=== PATIENT | male | born 1955 | race Caucasian/White ===

== ENCOUNTER 2016-04-26 12:41 | Emergency (ER) | payer MEDICAID ==
[2016-04-26 13:05] VITALS: BP 179/114; PULSE 110; RESP 20; TEMP 98.8
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
[2016-04-26 13:58] VITALS: O2SAT 94
== END 2016-04-26 14:26 | disposition home or self-care (01) ==
LOC: EDUNIT#
DX: F10.120 Alcohol abuse with intoxication, uncomplicated (principal); Z79.82 Long term (current) use of aspirin

== ENCOUNTER 2017-09-11 09:42 | Emergency (ER) | payer MEDICAID ==
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
--- NOTE | 2017-09-11 11:19 | CPEKG ---
Heart Rate: 92 RR Interval: 652 P-R Interval: 168 QRSD Interval: 80 QT Interval: 380 QTC Interval: 471 P [place]: 41 QRS [place]: 44 T Wave [place]: 39 EKG Severity - NORMAL ECG - EKG Impression: SINUS RHYTHM Electronically Signed By: Patrizia Mckeon 11-Sep-2017 15:22:17
[2017-09-11 11:22] LABS: PLATELET COUNT 264 10^3/uL (150-400)
[2017-09-11 11:41] VITALS: BP 132/88
== END 2017-09-11 12:06 | disposition home or self-care (01) ==
LOC: EDUNIT#
PROC: 0HQ1XZZ Repair Face Skin, External Approach (ICD-10-PCS; principal; 2017-09-11)
DX: S01.112A Laceration without foreign body of left eyelid and periocular area, initial encounter (principal); F10.920 Alcohol use, unspecified with intoxication, uncomplicated; Z79.82 Long term (current) use of aspirin; X58.XXXA Exposure to other specified factors, initial encounter
CPT/HCPCS: 84484-PO; G0480

== ENCOUNTER 2017-09-22 09:45 | Observation (INO) | payer MEDICAID ==
[2017-09-22] MEDS ORDERED: chlorproMAZINE HCL 25 MG TAB PO ONE ×2 (10:06→12:07)
[2017-09-22] MEDS ORDERED: LORazepam 2 MG/ML INJ IVP ONE (10:09)
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
[2017-09-22 10:15] LABS: PLATELET COUNT 182 10^3/uL (150-400)
--- NOTE | 2017-09-22 10:32 | CPEKG ---
Heart Rate: 113 RR Interval: 531 P-R Interval: 156 QRSD Interval: 84 QT Interval: 356 QTC Interval: 489 P [place]: 53 QRS [place]: 46 T Wave [place]: 239 EKG Severity - ABNORMAL ECG - EKG Impression: SINUS TACHYCARDIA EKG Impression: PROBABLE LEFT ATRIAL ABNORMALITY EKG Impression: ABNORMAL T, CONSIDER ISCHEMIA, DIFFUSE LEADS EKG Impression: BORDERLINE PROLONGED QT INTERVAL Electronically Signed By: See Swift 22-Sep-2017 10:38:30
[2017-09-22] MEDS ORDERED: NS 1,000 ML IV ONE ×3 (11:35→14:58)
--- NOTE | 2017-09-22 14:39 | CPEKG ---
Heart Rate: 139 RR Interval: 432 P-R Interval: 120 QRSD Interval: 86 QT Interval: 308 QTC Interval: 469 P [place]: 51 QRS [place]: 45 T Wave [place]: 240 EKG Severity - ABNORMAL ECG - EKG Impression: SINUS TACHYCARDIA EKG Impression: PROBABLE LEFT ATRIAL ABNORMALITY EKG Impression: REPOL ABNRM SUGGESTS ISCHEMIA, LATERAL LEADS Electronically Signed By: See Swift 22-Sep-2017 14:46:55
[2017-09-22] MEDS ORDERED: ACETAMINOPHEN 325 MG TAB PO PRN (15:21)
[2017-09-22] MEDS ORDERED: PROMETHAZINE HCL 25 MG/ML INJ IVP PRN (15:21)
[2017-09-22] MEDS ORDERED: ONDANSETRON 4 MG/2 ML VIAL IVP PRN (15:21)
[2017-09-22] MEDS ORDERED: FLUMAZENIL 0.5 MG/5 ML MDV IVP PRN (15:22)
[2017-09-22] MEDS ORDERED: LORazepam 2 MG/ML INJ IVP PRN (15:22)
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
[2017-09-22] MEDS: THIAMINE HCL 500 MG in NS 100 ML IV SCH (16:36)
[2017-09-22] MEDS: ASPIRIN 81 MG CHEWABLE TAB PO SCH (19:35)
[2017-09-23 05:35] LABS: PLATELET COUNT 100 10^3/uL (150-400)
[2017-09-23] MEDS: THIAMINE HCL 500 MG in NS 100 ML IV SCH (08:13)
[2017-09-23] MEDS ORDERED: POTASSIUM CL 20 MEQ/15 ML UDCUP PO ONE (08:39)
[2017-09-23] MEDS ORDERED: THIAMINE HCL 500 MG in NS 100 ML IV SCH (09:00)
--- NOTE | 2017-09-23 09:54 | ASMTCMCOM ---
CM Note CM Note Notes: Patient admitted for intractable hiccups. PMH of AVR and EtOH abuse. I spoke with patient who is not interested in alcohol cessation. He says he's been to rehab, which didn't work, and quit drinking on his own. He says this hospitalization is a "wake up call." I offered support when/if he decides he wants it. He will likely discharge independently; he lives with a roommate. Date Signed: 09/23/2017 09:53 AM Electronically Signed By:Danni Farnsworth RN
[2017-09-23] MEDS ORDERED: NS W/ 20 KCl/L 1,000 ML IV SCH (11:00)
--- NOTE | 2017-09-23 12:40 | ECHO ---
[email or web address] [address] [address] Main: [phone] Fax: Transthoracic Echocardiogram Name: MARCUS FULLER MR#: [id number] Study Date: 09/23/2017 Study Time: 07:38 AM Date of : 1955 Age: 62 year(s) Height: 167.6 cm (66 in.) Weight: 70.31 kg (155 lb.) BSA: 1.79 m2 Gender: Male Examination: Echo Indication: h/o avr presents with tachycardia and flow murmur Image Quality: Adequate Contrast: Requested by: Silvestre Moyer BP: 110 mmHg/91 mmHg Heart Rate: Rhythm: Indication: h/o avr presents with tachycardia and flow murmur Procedure Staff Steelworker: Lillie Alvarez RDCS Reading Physician: Cristhian Arellano MD Requesting Provider: Conclusions: No pericardial effusion. Asymmetric septal hypertrophy with ejection fraction of 65-70%. LVOT gradient of 27-42 mm of mercury mild mitral regurgitation. Aortic valve replacement with mean gradient of 23 mm of mercury. Measurements: Chambers Valvular Assessment AV/MV Valvular Assessment TV/PV Normal Normal Normal Name Value Range Name Value Range Name Value Range Ao Taya (2D): 2.7 cm (1.4 cm-2.6 AV Vmax: 2.90 m/s (1 m/s-1.7 PV Vmax: 0.95 m/s (0.6 m/s-0.9 cm) m/s) m/s) IVSd (2D): 2.0 cm (0.6 cm-1.1 AV maxP mmHg ( - ) PV PGmax: 4 mmHg ( - ) cm) AV meanP mmHg ( - ) LVDd (2D): 3.4 cm (4.2 cm-5.9 HOA (VTI): 0.8 cm ( - ) cm) MV E Vmax: 0.69 m/s ( - ) LVDs (2D): 2.5 cm (2.1 cm-4 MV A Vmax: 1.06 m/s ( - ) cm) MV E/A: 0.65 ( - ) LVPWd (2D): 1.3 cm (0.6 cm-1 cm) MV meanP mmHg ( - ) LVOTd 1.5 cm 1.5 cm mm MV PHT: 0.054 s ( - ) LVEF (BP): 67 % (>=55 %) MVA (Vmax): 1.9 m/s ( - ) EF Range: 65-70 % MVA (PHT): 4.1 s ( - ) Continued Measurements: Chambers Valvular Assessment AV/MV Valvular Assessment TV/PV Name Value Name Value Name Value LADs: 3.1 cm MV DecTime: 158 m/s CVP (est.): 5 mmHg LADs Lon.2 cm MV E' Septal: 0.05 m/s LA Area: 15.3 cm2 MV E/E' Septal: 12.80 Patient: MARCUS FULLER Study Date: 09/23/2017 Page 1 of 2 07:38 AM LA Volume: 39 ml MV E/E' Lateral: 13.80 LA Volume Index: 21.8 ml/m2 MV VTI: 21.00 cm RA Area: 12.2 cm2 Additional Vessels Name Value Inferior Vena Cava: 1.4 cm Findings: Left Ventricle: Normal size left ventricle. Asymmetrical septal LV hypertrophy. Normal global systolic LV function. The ejection fraction is estimated to be 65-70 %. No regional wall motion abnormality. Diastolic dysfunction is present. . There is an elevation of the LVOT gradient with a peak gradient of 27 mmhg and a peak velocity of 2.6 m/s. After an irregular heartbeat a peak velocity of 3.2 m/s with a peak gradient of 42 mmhg was obtained. Right Ventricle: Normal size right ventricle. Normal RV function. Left Atrium: The left atrium is normal in size. Right Atrium: The right atrium is normal in size. Mitral Valve: The mitral valve is normal in appearance and function. Mild mitral valve leaflet calcification is present. Mild mitral valve regurgitation is present. No mitral stenosis is present. Aortic Valve: There is an aortic valve resplacement. The aortic valve replacement demonstrates trace to mild aortic regurgitation. The mean gradient is 23 mmhg. Tricuspid Valve: The tricuspid valve is normal in appearance and function. There is no significant tricuspid valve regurgitation. The pulmonary artery pressure is normal. Pulmonic Valve: The pulmonic valve is normal in appearance and function. There is no pulmonic regurgitation seen. Aorta: The aorta is normal. Normal size aortic root measuring 2.7 cm. IVC: The IVC is normal sized. Pericardium: No pericardial effusion. There is pericardial fat. No pleural effusion. (No Signature Object) Patient: MARCUS FULLER Study Date: 09/23/2017 Page 2 of 2 07:38 AM [id number]
[2017-09-23] MEDS ORDERED: IOPAMIDOL (ISOVUE 370) 100 ML BTL IV ONE (13:15)
[2017-09-23 16:27] VITALS: BP 155/110
[2017-09-23] MEDS: ASPIRIN 81 MG CHEWABLE TAB PO SCH (17:15)
--- NOTE | 2017-09-23 20:13 | PDDCSUM ---
Discharge Summary Discharge Summary: This is a 62 yo male who initially presented to the ER with hiccups. He was given Thorazine with resolution of his hiccups. He was also found to have hypotension and tachycardia. He had an elevated WBC count. He had an elevated D- Dimer. He responded well to IVF and was admitted to the SDU. He did well overnight and was able to maintain an adequate BP on the day of discharge. He continues to have mild sinus tachycardia and given his elevated D-dimer a CTA was obtained which was negative for P.E. He had no e/o of fever or other pathology He has a hx of Aortic valve replacement several years ago. He reports that it was done here. He does not remember who his surgeon is. CTA showed aneurysm of the ascending aorta measuring 5 cm. There was also the possibility of 2 pseudo aneurysm. Please see the official CTA chest report. TTE was c/w an elevated aortic valve peak gradient. I reviewed the imaging with our cardiothoracic surgeon, Dr. Escobedo. Upon review it was felt that the patient needed f/u with them. An official consultation was offered to the patient but he refused. Dr. Escobedo did meet shortly and the pt has agreed to f/u with him next week. He is hemodynamically stable on discharge. Tachycardia also is resolved. 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 ESCOBEDO PER ABOVE TOTAL TIME SPENT ON D/C IS 35 MINS
[2017-09-25] MEDS ORDERED: THIAMINE HCL 100 MG TAB PO SCH ×2 (09:00→15:22)
== END 2017-09-23 17:20 | disposition home or self-care (01) ==
LOC: INTOOBSV 14:45 → F2N 15:57
PROVIDERS: ADMIT Family Medicine; ATTEND Family Medicine
DX: R06.6 Hiccough (principal); R00.0 Tachycardia, unspecified; I95.9 Hypotension, unspecified; Z95.1 Presence of aortocoronary bypass graft; F10.10 Alcohol abuse, uncomplicated
CPT/HCPCS: 71046; 71275; 93005; 93306; 96361; 96374; 99291; G0378; 84484-PO; G0480; J2060; J3411; Q9967

== ENCOUNTER 2018-02-11 14:38 | Emergency (ER) | payer MEDICAID ==
--- NOTE | 2018-02-11 15:19 | EDPHY ---
H & P Stated Complaint: Bruising to bilateral arms x 2 weeks Time Seen by Provider: 02/11/18 15:17 HPI/ROS: HPI CHIEF COMPLAINT: Bruising bilateral arms. HISTORY OF PRESENT ILLNESS: This is a very pleasant 62-year-old male, alcohol, drinks alcohol daily. He works construction. Presents emergency room stating is concerned about bruising on his bilateral arms. He states he has never had this before. He does work construction but does not remember injuring her hitting his arms. He has no significant pain but on the dorsum aspect of both of his arms he has ecchymosis. Purple discoloration. No blisters. No cellulitis. No purpura. He has not been sick recently. He does drink a rather large amount of alcohol daily. Past Medical History: Alcoholism. Past Surgical History: Aortic valve replacement. Wrist surgery. Social History: Daily alcohol use. Homeless. Works construction. Family History: Noncontributory ROS REVIEW OF SYSTEMS: 10 Systems were reviewed and negative with the exception of the elements mentioned in the history of present illness. Exam Constitutional triage nursing summary reviewed, vital signs reviewed, awake/ alert. Eyes normal conjunctivae and sclera, EOMI, PERRLA. HENT normal inspection, atraumatic, moist mucus membranes, no epistaxis, neck supple/ no meningismus, no raccoon eyes. Respiratory clear to auscultation bilaterally, normal breath sounds, no respiratory distress, no wheezing. Cardiovascular rate normal, regular rhythm, no murmur, no edema, distal pulses normal. Gastrointestinal soft, non-tender, no rebound, no guarding, normal bowel sounds, no distension, no pulsatile mass. Genitourinary no CVA tenderness. Musculoskeletal no midline vertebral tenderness, full range of motion, no calf swelling, no tenderness of extremities, no meningismus, good pulses, neurovascularly intact. Skin bilateral dorsum of both arms ecchymosis purple discoloration. Neurologic awake, alert and oriented x 3, AAOx3, moves all 4 extremities equally, motor intact, sensory intact, CN II-XII intact, normal cerebellar, normal vision, normal speech. Psychiatric normal mood/affect. Heme/Lymph/Immune no lymphadenopathy. Differential Diagnosis: Includes but is not limited to in a particular order ecchymosis due to hitting his arms, chronic alcohol use causing thinning of his blood, platelet abnormality, leukemia Medical Decision Making: Plan for this patient check basic blood work. Re- evaluate. Re-evaluation: Serum alcohol level 418. Time of this 1917: Patient has been monitored here for multiple hours. His initial alcohol level over 5 hr ago was 418. However that time he was rather sober with clear speech. Normal gait. He sobered here for multiple hours. He is stable gait at this time. Answers questions appropriately. Is safe for discharge. The patient will go to the [facility]. Source: Patient - Personal History Current Tetanus Diphtheria and Acellular Pertussis (TDAP): Yes - Medical/Surgical History Hx Asthma: No Hx Chronic Respiratory Disease: No Hx Diabetes: No Hx Cardiac Disease: Yes Hx Renal Disease: No Hx Cirrhosis: No Hx Alcoholism: Yes Hx HIV/AIDS: No Hx Splenectomy or Spleen Trauma: No Other PMH: LT wrist surgery in December 2013. aortic valve replacement 2014; ETOH with falls - Social History Smoking Status: Never smoked Constitutional: Initial Vital Signs Temperature (C) 36.7 C 02/11/18 14:41 Heart Rate 101 H 02/11/18 14:41 Respiratory Rate 02/11/18 14:41 Blood Pressure 140/90 H 02/11/18 14:41 O2 Sat (%) 93 02/11/18 14:41 O2 Delivery Mode Room Air Allergies/Adverse Reactions: No Known Allergies Allergy (Verified 09/22/17 15:15) Home Medications: Medication Instructions Recorded Aspirin [Aspirin 81mg (*)] 81 mg PO DAILY@18 09/22/17 Medical Decision Making - Data Points Laboratory Results: Laboratory Results 02/11/18 15:27 02/11/18 15:27 02/11/18 02/11/18 15:27 15:27 WBC 5.01 10^3/uL 10^3/uL (3.80-9.50) RBC 3.82 10^6/uL L 10^6/uL (4.40-6.38) Hgb 13.3 g/dL L g/dL (13.7-17.5) Hct 37.0 % L % (40.0-51.0) MCV 96.9 fL fL (81.5-99.8) MCH 34.8 pg H pg (27.9-34.1) MCHC 35.9 g/dL g/dL (32.4-36.7) RDW 13.2 % % (11.5-15.2) Plt Count 126 10^3/uL L 10^3/uL (150-400) MPV 8.9 fL fL (8.7-11.7) Neut % (Auto) 56.3 % % (39.3-74.2) Lymph % (Auto) 29.9 % % (15.0-45.0) [place] % (Auto) 12.2 % % (4.5-13.0) Eos % (Auto) 0.4 % L % (0.6-7.6) Baso % (Auto) 0.8 % % (0.3-1.7) Nucleat RBC Rel Count 0.0 % % (0.0-0.2) Absolute Neuts (auto) 2.82 10^3/uL 10^3/uL (1.70-6.50) Absolute Lymphs (auto) 1.50 10^3/uL 10^3/uL (1.00-3.00) Absolute Monos (auto) 0.61 10^3/uL 10^3/uL (0.30-0.80) Absolute Eos (auto) 0.02 10^3/uL L 10^3/uL (0.03-0.40) Absolute Basos (auto) 0.04 10^3/uL 10^3/uL (0.02-0.10) Absolute Nucleated RBC 0.00 10^3/uL 10^3/uL (0-0.01) Immature Gran % 0.4 % % (0.0-1.1) Immature Gran # 0.02 10^3/uL 10^3/uL (0.00-0.10) Sodium 142 mEq/L mEq/L (135-145) Potassium 3.6 mEq/L mEq/L (3.3-5.0) Chloride 102 mEq/L mEq/L (97-110) Carbon Dioxide 24 mEq/l mEq/l (22-31) Anion Gap 16 mEq/L H mEq/L (6-14) BUN 11 mg/dL mg/dL (7-23) Creatinine 1.0 mg/dL mg/dL (0.7-1.3) Estimated GFR > 60 Glucose 102 mg/dL H mg/dL (70-100) Calcium 9.0 mg/dL mg/dL (8.5-10.4) Total Bilirubin 1.2 mg/dL mg/dL (0.1-1.4) AST 363 IU/L H IU/L (17-59) ALT 129 IU/L H IU/L (21-72) Alkaline Phosphatase 156 IU/L H IU/L (38-126) Total Protein 7.1 g/dL g/dL (6.3-8.2) Albumin 4.4 g/dL g/dL (3.5-5.0) Ethyl Alcohol 418 mg/dL H* mg/dL (0-10) Departure - Departure Disposition: Home, Routine, Self-Care Clinical Impression: Bruising, Alcoholism, Thrombocytopenia Alcohol intoxication Qualifiers: Complication of substance-induced condition: uncomplicated Qualified Code(s): F10.920 - Alcohol use, unspecified with intoxication, uncomplicated Condition: Good Instructions: Chlordiazepoxide/Clidinium (By mouth), Alcohol Intoxication (ED) , Thrombocytopenia (ED), Ecchymosis (ED) Additional Instructions: 1. Stop drinking alcohol. Referrals: NONE *PRIMARY CARE P,. [Primary Care Provider] - As per Instructions
[2018-02-11 15:38] LABS: PLATELET COUNT 126 10^3/uL (150-400)
[2018-02-11] MEDS ORDERED: CHLORDIAZEPOXIDE 25MG PREPK#6 BTL TAKEHOME ONE (19:16)
[2018-02-11 19:26] VITALS: BP 128/79
== END 2018-02-11 19:32 | disposition home or self-care (01) ==
DX: F10.920 Alcohol use, unspecified with intoxication, uncomplicated (principal); S40.021A Contusion of right upper arm, initial encounter; S40.022A Contusion of left upper arm, initial encounter; D69.6 Thrombocytopenia, unspecified
CPT/HCPCS: G0480

== ENCOUNTER 2018-02-24 11:19 | Inpatient (IN) | payer MEDICAID ==
[2018-02-24] MEDS ORDERED: NS 1,000 ML IV ONE ×2 (11:48→13:06)
[2018-02-24] MEDS ORDERED: ONDANSETRON 4 MG/2 ML VIAL IVP ONE (11:48)
[2018-02-24] MEDS ORDERED: LORazepam 2 MG/ML INJ IVP ONE ×3 (11:57→15:17)
--- NOTE | 2018-02-24 12:01 | EDPHY ---
HPI/HX/ROS/PE/MDM Narrative: CLINICAL IMPRESSION: Wernike encephalopathy, alcohol withdrawal ASSESSMENT/PLAN: 62-year-old alcoholic male presents to the emergency department by taxi after being [facility] for [facility] withdrawal. Patient reports he has been without alcohol for at least 3 days. Patient is very tremulous on arrival but denies headache, anxiety, paresthesias, abdominal pain, chest pain and shortness of breath, auditory and visual hallucinations. Initial see while score of 8 based on significant tremors. Patient received 2 mg Ativan, IV fluids, and labs. On re-evaluation, patient continued to be significantly tremulous, attempted road testing was unsuccessful with ataxia and significant tremor. Patient is giving conflicting reports about the time of day, finding his vehicle at an unknown bar, and intermittently confused on how he got here. I suspect the patient likely has Wernike encephalopathy from alcohol withdrawal. Thiamine and folate were ordered, discussed with hospitalist Dr. Mcmahan who agrees to admission. Patient was stabilized in the ED prior to transfer to the floor. Discussed with Dr. Lynch who also saw and examined the patient DIFFERENTIAL DX: Differential diagnosis includes but not limited to alcohol withdrawl, DT's, electrolyte imbalance, Co ingestion, toxidrome, metabolic disturbance, wernike encephalopathy, infection ED PROCEDURES: See lab results below ED COURSE: On reassessments, patient remains quite tremulous, unable to walk with steady gait, ataxic, seemingly confused over where his car is although originally reported to me it was his roommate scar. Denies headache, has had no nausea or vomiting. No reported anxiety. However given his neurologic dysfunction and ataxia I am concerned about warning he has encephalopathy. Patient was seen and examined by Dr. Lynch. It was felt he would benefit from admission. Thiamin and fully ordered. Discussed with hospitalist Dr. Mcmahan who accepts admission. CHIEF COMPLAINT: Can't stand up HPI: This is a 62-year-old alcoholic male who presents to the emergency department by taxi from the [facility] with complaints that he is having difficulty standing. Patient reports he has been at the [facility] for the last 3 days , was discharged this morning, was attempting to walk to a bus stop and states "the wind made it hard for my legs to work and I had to crawl back to the arc". A taxi was called for the patient and he was sent to the ER. Patient admits to fairly regular drinking but reports his last drink was 3 days ago. He denies auditory and visual hallucinations, denies hospitalization for previous alcohol withdrawal, and denies alcohol withdrawal seizures. He is very tremulous but states"I am always tremulous". He denies of any illicit drug abuse. He has no physical complaints including chest pain, shortness of breath , abdominal pain, nausea, vomiting and headache. Patient denies anxiety and paresthesias of the arms or legs. PMH: Chronic alcoholism Pertinent Past Surgical History: Previous orthopedic surgery and aortic valve replacement in 2014 Family History: Noncontributory Social History: Drinks regularly, lives with a roommate in [facility], works in construction REVIEW OF SYSTEMS: All other systems negative Constitutional: No fever, no chills, appetite change. Eyes: No discharge, vision change ENT: No sore throat, congestion, ear pain. Cardiovascular: No chest pain, no palpitations. Respiratory: No cough, no shortness of breath. Gastrointestinal: No abdominal pain, no vomiting, diarrhea. Genitourinary: No hematuria, dysuria, flank pain, pelvic pain Musculoskeletal: No back pain, joint swelling, joint pain, myalgias. Skin: No rashes, color change. Neurological: No headache, dizziness, +weakness. PHYSICAL EXAM: General Appearance: Alert, oriented x 2 unable to recollect the year, tremulous , stating that it is "so late in the day" when he looks at the clock and unaware that it is 11am vs 11pm. Otherwise answering all questions. Tachycardic, hypertensive. Smells of etoh HEENT: TMs are clear bilaterally no perforation or FB, no injection, no evidence of serous or mucopurulent otitis. Oropharynx clear is no erythema or exudates, no tonsillar hypertrophy or asymmetry. + tongue fasiculations. Dentition without abnormality. Eyes: PERRLA, no acute vision change, nystagmus, swelling, discharge, pain or photosensitivity. Conjunctiva pink, no pallor or injection Neck: Supple, nontender, no lymphadenopathy, no midline pain, FROM, no meningismus. Respiratory: There are no retractions, lungs are clear to auscultation. Cardiac: tachycardic, regular rhythm, no murmurs or gallops. Gastrointestinal: Abdomen is soft, nontender, bowel sounds normal, no masses/ hernia, no rigidity, guarding or focal peritoneal findings. Neurological: Alert and oriented x 3, CN 2-12 grossly intact, gait not initially tested but patient has FROM of bilateral LE although tremulous with cerebellar testing, strength 5/5, no clonus, DTR's intact, normal sensation and strength, no subjective paresthesias Skin: Warm, dry, no rashes, no nodules on palpation. Musculoskeletal: Extremities are symmetrical, full range of motion, no tenderness, deformity, swelling, or erythema, essential tremor noted to all extremities. Psychiatric: Patient is oriented X 3, there is no agitation, no auditory or visual hallucinations, no SI/HI. MEDICAL DECISION MAKING: Patient was seen with ED attending. Secondary supervising physician at time of evaluation was Dr. Lynch. Diagnosis: Wernike encephalopathy, alcohol withdrawal . New, requires workup Summary: See Assessment and Plan for summary of ED visit Clinical lab tests: ordered / reviewed. Independent visualization of images, tracing, or specimens: Yes. Discussed patient with another provider: Dr Lynch, Dr. Mcmahan Patient Progress: stable. - Data Points Laboratory Results: Laboratory Results 02/24/18 12:00 02/24/18 12:00 02/24/18 02/24/18 02/24/18 12:00 12:00 12:00 WBC 7.94 10^3/uL 10^3/uL (3.80-9.50) RBC 3.86 10^6/uL L 10^6/uL (4.40-6.38) Hgb 13.3 g/dL L g/dL (13.7-17.5) Hct 37.4 % L % (40.0-51.0) MCV 96.9 fL fL (81.5-99.8) MCH 34.5 pg H pg (27.9-34.1) MCHC 35.6 g/dL g/dL (32.4-36.7) RDW 14.0 % % (11.5-15.2) Plt Count 107 10^3/uL L 10^3/uL (150-400) MPV 9.1 fL fL (8.7-11.7) Neut % (Auto) 89.8 % H % (39.3-74.2) Lymph % (Auto) 3.5 % L % (15.0-45.0) [place] % (Auto) 5.5 % % (4.5-13.0) Eos % (Auto) 0.0 % L % (0.6-7.6) Baso % (Auto) 0.4 % % (0.3-1.7) Nucleat RBC Rel Count 0.0 % % (0.0-0.2) Absolute Neuts (auto) 7.13 10^3/uL H 10^3/uL (1.70-6.50) Absolute Lymphs (auto) 0.28 10^3/uL L 10^3/uL (1.00-3.00) Absolute Monos (auto) 0.44 10^3/uL 10^3/uL (0.30-0.80) Absolute Eos (auto) 0.00 10^3/uL L 10^3/uL (0.03-0.40) Absolute Basos (auto) 0.03 10^3/uL 10^3/uL (0.02-0.10) Absolute Nucleated RBC 0.00 10^3/uL 10^3/uL (0-0.01) Immature Gran % 0.8 % % (0.0-1.1) Immature Gran # 0.06 10^3/uL 10^3/uL (0.00-0.10) RBC/WBC/PLT Morphology TNP Platelet Estimate TNP Sodium 138 mEq/L mEq/L (135-145) Potassium 3.1 mEq/L L mEq/L (3.3-5.0) Chloride 95 mEq/L L mEq/L (97-110) Carbon Dioxide 26 mEq/l mEq/l (22-31) Anion Gap 17 mEq/L H mEq/L (6-14) BUN 6 mg/dL L mg/dL (7-23) Creatinine 0.9 mg/dL mg/dL (0.7-1.3) Estimated GFR > 60 Glucose 136 mg/dL H mg/dL (70-100) Calcium 9.0 mg/dL mg/dL (8.5-10.4) Total Bilirubin 2.0 mg/dL H mg/dL (0.1-1.4) Conjugated Bilirubin 0.7 mg/dL H mg/dL (0.0-0.5) Unconjugated Bilirubin 1.3 mg/dL H mg/dL (0.0-1.1) AST 199 IU/L H IU/L (17-59) ALT 73 IU/L H IU/L (21-72) Alkaline Phosphatase 110 IU/L IU/L (38-126) Total Protein 7.1 g/dL g/dL (6.3-8.2) Albumin 4.2 g/dL g/dL (3.5-5.0) Lipase 85 IU/L IU/L (23-300) Ethyl Alcohol Pending < 10 mg/dL mg/dL (0-10) Medications Given: Discontinued Medications Folic Acid (Folic Acid) 1 mg PO EDNOW ONE Stop: 02/24/18 15:11 Last Admin: 02/24/18 15:31 Dose: 1 mg Sodium Chloride (Ns) 1,000 mls @ 0 mls/hr IV EDNOW ONE; Wide Open PRN Reason: Protocol Stop: 02/24/18 11:49 Last Admin: 02/24/18 12:23 Dose: 1,000 mls Sodium Chloride (Ns) 1,000 mls @ 0 mls/hr IV EDNOW ONE; Wide Open PRN Reason: Protocol Stop: 02/24/18 13:07 Last Admin: 02/24/18 13:48 Dose: 1,000 mls Lorazepam (Ativan Injection) 2 mg IVP EDNOW ONE Stop: 02/24/18 11:58 Last Admin: 02/24/18 12:26 Dose: 2 mg Lorazepam (Ativan Injection) 1 mg IVP EDNOW ONE Stop: 02/24/18 14:05 Last Admin: 02/24/18 14:12 Dose: 1 mg Lorazepam (Ativan Injection) 2 mg IVP EDNOW ONE Stop: 02/24/18 15:18 Last Admin: 02/24/18 15:32 Dose: 2 mg Ondansetron HCl (Zofran) 4 mg IVP EDNOW ONE Stop: 02/24/18 11:49 Last Admin: 02/24/18 12:26 Dose: 4 mg General Time Seen by Provider: 02/24/18 11:41 Initial Vital Signs: Initial Vital Signs Temperature (C) 36.7 C 02/24/18 11:20 Heart Rate 129 H 02/24/18 11:20 Respiratory Rate 18 02/24/18 11:20 Blood Pressure 144/104 H 02/24/18 11:20 O2 Sat (%) 94 02/24/18 11:20 O2 Delivery Mode Room Air O2 (L/minute) 2 Allergies/Adverse Reactions: No Known Allergies Allergy (Verified 09/22/17 15:15) Home Medications: Medication Instructions Recorded Aspirin [Aspirin 81mg (*)] 81 mg PO DAILY@18 09/22/17 Departure - Departure Clinical Impression: Wernicke encephalopathy, Ataxia Alcohol dependence with withdrawal Qualifiers: Complication of substance-induced condition: with unspecified complication Qualified Code(s): F10.239 - Alcohol dependence with withdrawal, unspecified
--- NOTE | 2018-02-24 12:26 | CPEKG ---
Test Reason : OPEN Blood Pressure : / mmHG Vent. Rate : 119 BPM Atrial Rate : 118 BPM P-R Int : 097 ms QRS Dur : 089 ms QT Int : 326 ms P-R-T Axes : 023 036 230 degrees QTc Int : 459 ms Sinus tachycardia Repol abnrm suggests ischemia, anterolateral Confirmed by Caleb Lynch ([id number]) on 02/24/2018 12:26:22 PM Referred By: Confirmed By:Caleb Lynch
[2018-02-24 12:33] LABS: PLATELET COUNT 107 10^3/uL (150-400)
[2018-02-24] MEDS ORDERED: FOLIC ACID 1 MG TAB PO ONE (15:10)
[2018-02-24] MEDS ORDERED: THIAMINE HCL 100 MG in NS 100 ML IV SCH (15:15)
[2018-02-24] MEDS ORDERED: FLUMAZENIL 0.5 MG/5 ML MDV IVP PRN (15:26)
[2018-02-24] MEDS ORDERED: ONDANSETRON DISINTEGRATING 4 MG TAB PO PRN (15:30)
[2018-02-24] MEDS ORDERED: ONDANSETRON 4 MG/2 ML VIAL IVP PRN (15:30)
[2018-02-24] MEDS ORDERED: ACETAMINOPHEN 325 MG TAB PO PRN (15:30)
[2018-02-24] MEDS ORDERED: THIAMINE HCL 100 MG in NS 100 ML IV ONE (16:00)
[2018-02-24] MEDS ORDERED: PROTOCOL POTASSIUM 1 DOSE MISC PRN (16:05)
[2018-02-24] MEDS ORDERED: PROTOCOL MAGNESIUM 1 DOSE IV PRN (16:05)
[2018-02-24] MEDS: LORazepam 2 MG/ML INJ IVP PRN ×5 (16:26→23:41)
--- NOTE | 2018-02-24 16:29 | PDGENHP ---
<Shayy Franklin - Last Filed: 02/24/18 17:05> History and Physical - Chief Complaint "My legs won't let me stand." - History of Present Illness 62 y/o male who has recently been in the hospital d/t alcohol detox and transferred to [facility] presents today reporting he is unable to stand. He was d/c'ed from [facility] today and attempted to walk to the bus stop but felt like his legs were too weak to continue walking. He did not fall but would brace himself on objects within reach. He felt as if the "wind was going to blow me over." He went back to [facility] where he took a taxi to here. This is my first encounter with the pt. He was seen in the ED. He was lying on his right-side and appeared intoxicated. Initially, he states his last drink was 5 days ago, but then reports it was Thursday because his van is still parked at the saloon where he drank last. He is unkempt appearing, odorous of alcohol and urine. His socks are saturated with urine, he was unable to use the urinal in time. A&Ox 2 (alert to place, person). He believed the year to be 1919. He denies vision changes, photophobia, dizziness, chest pains, SOB, dysuria, diarrhea, n/v, fever or chills. No abdominal pain or tenderness. He does present with tremors and generalized tremulous. He reported to ED this was normal for him but for me, he denies this. [employer] 2-12 intact. No numbness, tingling. Noticeable BLE weakness - motor strength BLE 3/5 with tremors. I did not witness his gait. Past Medical/Surgical History 1. Alcohol use disorder 2. CAD 3. Aortic Valve Replacement (he reports this took place 5 years ago) 4. Ascending aortic aneurysm (5 cm) with possible pseudoaneurysm 5. Wrist surgery 6. Thrombocytopenia Social 1. Lives in the basement of his friends house. 2. Drinks alcohol (1/2 a pint of vodka) daily 3. 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 Sometimes drinks a beer at lunch. 4. Denies illicit drug use, denies tobacco use Vital Signs 131/88 102 HR 18 Respirations 96% RA 36.7 c History Information - Allergies/Home Medication List Allergies/Adverse Reactions: No Known Allergies Allergy (Verified 09/22/17 15:15) Home Medications: Aspirin [Aspirin 81mg (*)] 81 mg PO DAILY@18 09/22/17 [Last Taken 09/21/17] I have personally reviewed and updated: family history, medical history, social history, surgical history Past Medical History: See HPI List - Surgical History Additional surgical history: See HPI List - Family History Additional family history: Both parents - alcoholism - Social History Smoking Status: Never smoked Alcohol Use: Heavy Drug Use: None Additional social history: See HPI List Review of Systems Review of Systems: ROS: 10pt was reviewed & negative except for what was stated in HPI & below Constitutional: Reports: weakness EENMT: Reports: no symptoms Cardiac: Reports: no symptoms Respiratory: Reports: no symptoms Gastrointestinal: Reports: no symptoms Genitourinary: Reports: no symptoms Muscolosketal: Reports: no symptoms Skin: Reports: no symptoms Neurological: Reports: tremors, weakness Hematologic/Lymphatic: Reports: no symptoms Immunologic/Allergy: Reports: no symptoms Physical Exam Physical Exam: Lab data and imaging reviewed. K: 3.1 Anion Gap: 17 Plt: 107 Hgb/Hct: 13.3/37.4 RBC: 3.86 Temp Pulse Resp BP Pulse Ox 36.7 C 110 H 20 135/85 H 94 02/24/18 11:20 02/24/18 15:31 02/24/18 15:31 02/24/18 15:31 02/24/18 15:31 Constitutional: unkempt, other (See HPI list) Eyes: EOMI, other (Bilateral pupil 5mm; no constriction with light) Ears, Nose, Mouth, Throat: moist mucous membranes, hearing normal, ears appear normal, no oral mucosal ulcers Cardiovascular: regular rate and rhythym, no murmur, rub, or gallop, tachycardia Peripheral Pulses: 2+: dorsalis-pedis (R) (Radial 2+), dorsalis-pedis (L) ( Radial 2+) Respiratory: no respiratory distress, no rales or rhonchi, clear to auscultation Gastrointestinal: normoactive bowel sounds, soft, non-tender abdomen, no palpable masses, other (Round abdomen) Genitourinary: no bladder fullness, no bladder tenderness Skin: warm, normal color, no rashes or abrasions, no fluctuance, no induration, No mottled Musculoskeletal: generalized weakness, other (Described in HPI) Neurologic: sensation intact bilaterally, weakness, CN II-XII Intact, other (A& Ox2) Psychiatric: encephalopathic (Metabolic), poor memory Lymph, Heme, Immunologic: no cervical LAD, no supraclavicular LAD Lab Data & Imaging Review 02/24/18 12:00 02/24/18 12:00 WBC 7.94 10^3/uL (3.80-9.50) 02/24/18 12:00 RBC 3.86 10^6/uL (4.40-6.38) L 02/24/18 12:00 Hgb 13.3 g/dL (13.7-17.5) L 02/24/18 12:00 Hct 37.4 % (40.0-51.0) L 02/24/18 12:00 MCV 96.9 fL (81.5-99.8) 02/24/18 12:00 MCH 34.5 pg (27.9-34.1) H 02/24/18 12:00 MCHC 35.6 g/dL (32.4-36.7) 02/24/18 12:00 RDW 14.0 % (11.5-15.2) 02/24/18 12:00 Plt Count 107 10^3/uL (150-400) L 02/24/18 12:00 MPV 9.1 fL (8.7-11.7) 02/24/18 12:00 Neut % (Auto) 89.8 % (39.3-74.2) H 02/24/18 12:00 Lymph % (Auto) 3.5 % (15.0-45.0) L 02/24/18 12:00 [place] % (Auto) 5.5 % (4.5-13.0) 02/24/18 12:00 Eos % (Auto) 0.0 % (0.6-7.6) L 02/24/18 12:00 Baso % (Auto) 0.4 % (0.3-1.7) 02/24/18 12:00 Nucleat RBC Rel Count 0.0 % (0.0-0.2) 02/24/18 12:00 Absolute Neuts (auto) 7.13 10^3/uL (1.70-6.50) H 02/24/18 12:00 Absolute Lymphs (auto) 0.28 10^3/uL (1.00-3.00) L 02/24/18 12:00 Absolute Monos (auto) 0.44 10^3/uL (0.30-0.80) 02/24/18 12:00 Absolute Eos (auto) 0.00 10^3/uL (0.03-0.40) L 02/24/18 12:00 Absolute Basos (auto) 0.03 10^3/uL (0.02-0.10) 02/24/18 12:00 Absolute Nucleated RBC 0.00 10^3/uL (0-0.01) 02/24/18 12:00 Immature Gran % 0.8 % (0.0-1.1) 02/24/18 12:00 Immature Gran # 0.06 10^3/uL (0.00-0.10) 02/24/18 12:00 RBC/WBC/PLT Morphology TNP 02/24/18 12:00 Platelet Estimate TNP 02/24/18 12:00 Sodium 138 mEq/L (135-145) 02/24/18 12:00 Potassium 3.1 mEq/L (3.3-5.0) L 02/24/18 12:00 Chloride 95 mEq/L (97-110) L 02/24/18 12:00 Carbon Dioxide 26 mEq/l (22-31) 02/24/18 12:00 Anion Gap 17 mEq/L (6-14) H 02/24/18 12:00 BUN 6 mg/dL (7-23) L 02/24/18 12:00 Creatinine 0.9 mg/dL (0.7-1.3) 02/24/18 12:00 Estimated GFR > 60 02/24/18 12:00 Glucose 136 mg/dL (70-100) H 02/24/18 12:00 Calcium 9.0 mg/dL (8.5-10.4) 02/24/18 12:00 Total Bilirubin 2.0 mg/dL (0.1-1.4) H 02/24/18 12:00 Conjugated Bilirubin 0.7 mg/dL (0.0-0.5) H 02/24/18 12:00 Unconjugated Bilirubin 1.3 mg/dL (0.0-1.1) H 02/24/18 12:00 AST 199 IU/L (17-59) H 02/24/18 12:00 ALT 73 IU/L (21-72) H 02/24/18 12:00 Alkaline Phosphatase 110 IU/L (38-126) 02/24/18 12:00 Total Protein 7.1 g/dL (6.3-8.2) 02/24/18 12:00 Albumin 4.2 g/dL (3.5-5.0) 02/24/18 12:00 Lipase 85 IU/L (23-300) 02/24/18 12:00 Ethyl Alcohol < 10 mg/dL (0-10) 02/24/18 12:00 Assessment & Plan Plan: 62 y/o male with alcohol abuse disorder presents with metabolic encephalopathy and ataxia. 1. Metabolic encephalopathy: presumably Wernicke. -CIWA scale -Thiamine/folic acid replacement -Drug screen pending -Potassium/Magnesium protocol initiated; K 3.1 -Magnesium level pending -Anion gap elevated (17); most likely lactic ketoacidosis secondary to etoh intake 2. Acute Ataxia/BLE weakness: considerations of alcoholic myopathy, Wernicke -PT/OT 3. Alcohol use disorder: educated pt on alcohol cessation -Case management to follow 4. Tachycardia -Repeat EKG 5. Chronic thrombocytopenia: most likely secondary to heavy alcohol use 6. Transaminitis -Continue to monitor -Repeat CMP tomorrow Diet: Regular VTE ppx: SCDs Code: Full Dispo: Admit to inpatient <Cindi Emmanuel - Last Filed: 02/24/18 19:25> History and Physical - History of Present Illness Review of Systems Review of Systems: Physical Exam Physical Exam: Temp Pulse Resp BP Pulse Ox 36.6 C 103 H 16 142/102 H 90 L 02/24/18 19:21 02/24/18 19:21 02/24/18 19:21 02/24/18 19:21 02/24/18 19:21 Lab Data & Imaging Review 02/24/18 12:00 02/24/18 12:00 WBC 7.94 10^3/uL (3.80-9.50) 02/24/18 12:00 RBC 3.86 10^6/uL (4.40-6.38) L 02/24/18 12:00 Hgb 13.3 g/dL (13.7-17.5) L 02/24/18 12:00 Hct 37.4 % (40.0-51.0) L 02/24/18 12:00 MCV 96.9 fL (81.5-99.8) 02/24/18 12:00 MCH 34.5 pg (27.9-34.1) H 02/24/18 12:00 MCHC 35.6 g/dL (32.4-36.7) 02/24/18 12:00 RDW 14.0 % (11.5-15.2) 02/24/18 12:00 Plt Count 107 10^3/uL (150-400) L 02/24/18 12:00 MPV 9.1 fL (8.7-11.7) 02/24/18 12:00 Neut % (Auto) 89.8 % (39.3-74.2) H 02/24/18 12:00 Lymph % (Auto) 3.5 % (15.0-45.0) L 02/24/18 12:00 [place] % (Auto) 5.5 % (4.5-13.0) 02/24/18 12:00 Eos % (Auto) 0.0 % (0.6-7.6) L 02/24/18 12:00 Baso % (Auto) 0.4 % (0.3-1.7) 02/24/18 12:00 Nucleat RBC Rel Count 0.0 % (0.0-0.2) 02/24/18 12:00 Absolute Neuts (auto) 7.13 10^3/uL (1.70-6.50) H 02/24/18 12:00 Absolute Lymphs (auto) 0.28 10^3/uL (1.00-3.00) L 02/24/18 12:00 Absolute Monos (auto) 0.44 10^3/uL (0.30-0.80) 02/24/18 12:00 Absolute Eos (auto) 0.00 10^3/uL (0.03-0.40) L 02/24/18 12:00 Absolute Basos (auto) 0.03 10^3/uL (0.02-0.10) 02/24/18 12:00 Absolute Nucleated RBC 0.00 10^3/uL (0-0.01) 02/24/18 12:00 Immature Gran % 0.8 % (0.0-1.1) 02/24/18 12:00 Immature Gran # 0.06 10^3/uL (0.00-0.10) 02/24/18 12:00 RBC/WBC/PLT Morphology TNP 02/24/18 12:00 Platelet Estimate TNP 02/24/18 12:00 Sodium 138 mEq/L (135-145) 02/24/18 12:00 Potassium 3.1 mEq/L (3.3-5.0) L 02/24/18 12:00 Chloride 95 mEq/L (97-110) L 02/24/18 12:00 Carbon Dioxide 26 mEq/l (22-31) 02/24/18 12:00 Anion Gap 17 mEq/L (6-14) H 02/24/18 12:00 BUN 6 mg/dL (7-23) L 02/24/18 12:00 Creatinine 0.9 mg/dL (0.7-1.3) 02/24/18 12:00 Estimated GFR > 60 02/24/18 12:00 Glucose 136 mg/dL (70-100) H 02/24/18 12:00 Calcium 9.0 mg/dL (8.5-10.4) 02/24/18 12:00 Magnesium 1.2 mg/dL (1.6-2.3) L 02/24/18 16:06 Total Bilirubin 2.0 mg/dL (0.1-1.4) H 02/24/18 12:00 Conjugated Bilirubin 0.7 mg/dL (0.0-0.5) H 02/24/18 12:00 Unconjugated Bilirubin 1.3 mg/dL (0.0-1.1) H 02/24/18 12:00 AST 199 IU/L (17-59) H 02/24/18 12:00 ALT 73 IU/L (21-72) H 02/24/18 12:00 Alkaline Phosphatase 110 IU/L (38-126) 02/24/18 12:00 Total Protein 7.1 g/dL (6.3-8.2) 02/24/18 12:00 Albumin 4.2 g/dL (3.5-5.0) 02/24/18 12:00 Lipase 85 IU/L (23-300) 02/24/18 12:00 Ethyl Alcohol < 10 mg/dL (0-10) 02/24/18 12:00 Assessment & Plan Assessment: Alcohol dependence with withdrawal (Acute) Ataxia (Acute) Wernicke encephalopathy (Acute) Plan: Patient seen and evaluated independently and care plan reviewed with DIAZ Franklin, agree with her assessment and plan as outlined above. Please see my separate note for further details.
--- NOTE | 2018-02-24 17:07 | HOSPPROG ---
Hospitalist Progress Note Assessment/Plan: Patient seen and evaluated independently and care plan reviewed with DIAZ Franklin, please see her H&P for further details. 62 yo M with PMH of aortic stenosis s/p AVR as well as ascending aortic aneurysm presenting with acute encephalopathy and gait instability in the setting of heavy etoh abuse # etoh use disorder, severe: patient with prior hospitalization for same, was at the [facility] prior to admission and reports not having a drink for 3 days # metabolic encephalopathy: suspect patient with Wernicke's encephalopathy due to chronic etoh abuse and patient significant memory issues as well as gait instability. Started on high dose thiamine, pt/ot ordered. BAL 0 and likely a component of etoh withdrawal as well as next # etoh withdrawal: patient reports being several days out from his last drink though this history is limited by his encephalopathy as above, will monitor on CIWA, currently mildly tremulous # alcoholic hepatitis: will add on PT but suspect this is mild given relatively minor elevation in bili, will trend # VHD: s/p bioprosthetic aortic valve replacement, no e/o decompensation currently # ascending aortic aneurysm: noted incidentally at his last hospitalization, followed up with Dr. Escobedo since then with plans for repair in November but unclear by records available if repair occurred, patient states he had a 'lung transplant' but when asked to clarify if he means valve surgery he says 'yes, valve' --will get chest xray to help clarify # hypokalemia: electrolyte protocol # thrombocytopenia: due to etoh abuse, will trend # IP status, will need > 48 hours for eval/mgmt of above Care plan reviewed with ER doctor as above, op records reviewed and summarized as above. Objective: Vital Signs Temp Pulse Resp BP Pulse Ox 37.1 C 104 H 28 H 152/106 H 91 L 02/24/18 16:13 02/24/18 16:13 02/24/18 16:13 02/24/18 16:13 02/24/18 16:13 02/23/18 02/24/18 02/25/18 05:59 05:59 05:59 Intake Total 1999 Balance 1999 ICD10 Worksheet Patient Problems: Problems Problem Status Onset Aortic stenosis Acute Hiccups Acute Tachycardia Acute Wernicke encephalopathy Acute Alcohol dependence with withdrawal Acute Ataxia Acute
--- NOTE | 2018-02-24 17:33 | CPEKG ---
Test Reason : OPEN Blood Pressure : / mmHG Vent. Rate : 106 BPM Atrial Rate : 107 BPM P-R Int : 160 ms QRS Dur : 083 ms QT Int : 342 ms P-R-T Axes : 040 027 191 degrees QTc Int : 455 ms Sinus tachycardia Probable left atrial enlargement Borderline repol abnormality, diffuse leads No significant change from February 24, 2018, 12;11 Confirmed by Porter Herzog ([id number]) on 02/24/2018 5:32:43 PM Referred By: Confirmed By:Porter Herzog
[2018-02-24 19:26] LABS: INR 1.09 (0.83-1.16); PROTIME(PATIENT) 14.3 SEC (12.0-15.0)
[2018-02-24] MEDS ORDERED: POTASSIUM CL 10 MEQ TAB PO ONE (20:34)
[2018-02-24] MEDS: THIAMINE HCL 500 MG in NS 100 ML IV SCH (22:49)
[2018-02-25] MEDS: LORazepam 2 MG/ML INJ IVP PRN ×7 (04:11→23:59)
[2018-02-25] MEDS: THIAMINE HCL 500 MG in NS 100 ML IV SCH ×3 (05:11→21:31)
[2018-02-25] MEDS ORDERED: POTASSIUM CL 10 MEQ TAB PO ONE ×2 (08:33→20:13)
[2018-02-25] MEDS: FOLIC ACID 1 MG TAB PO SCH (09:08)
[2018-02-25] MEDS: MULTIVITAMINS W-MINERALS 1 EACH TAB PO SCH (09:08)
[2018-02-25] MEDS ORDERED: MAGNESIUM SULF 2 GM/WATER 50 ML IV ONE (10:00)
--- NOTE | 2018-02-25 10:07 | PDMN ---
Medical Necessity Medical necessity: Pt meets IP criteria as of 04/26/2017 per and NIGHAT M-570 ( Liver Disease Complications); est los > 2 mn for ongoing tx and management of alcoholic hepatitis with metabolic encephalopathy, hypokalemia, anemia, and ETOH withdrawal; requiring serial labs, CIWA protocol, IVF, and therapies.
--- NOTE | 2018-02-25 15:10 | ASMTCMCOM ---
CM Note CM Note Notes: CM met with pt to discuss discharge needs. Pt reports he was discharged from [facility] and was previously living with friends. Pt reports he has a vehicle and gets food from the foodbank regularly. Pt reports he has not been to the [facility] before and has friends who he may be able to stay with at discharge. CM provided education on importance of supports. CM to follow. Plan: Home with friend vs [facility]. Date Signed: 02/25/2018 03:10 PM Electronically Signed By:ROSE MARY Kent
--- NOTE | 2018-02-25 15:37 | HOSPPROG ---
Hospitalist Progress Note Assessment/Plan: 62 yo M with PMH of aortic stenosis s/p AVR as well as ascending aortic aneurysm presenting with acute encephalopathy and gait instability in the setting of heavy etoh abuse # etoh use disorder, severe: -patient with prior hospitalization for same, -was at the [facility] prior to admission and reports not having a drink for 3 days # metabolic encephalopathy: -suspect patient with Wernicke's encephalopathy due to chronic etoh abuse -patient significant memory issues as well as gait instability. -high dose thiamine, -pt/ot # etoh withdrawal: -patient reports being several days out from his last drink -history is limited by his encephalopathy -CIWA, -tremulous # alcoholic hepatitis: -follow labs # VHD: -s/p bioprosthetic aortic valve replacement, -no e/o decompensation currently # ascending aortic aneurysm: - noted incidentally at his last hospitalization, -followed up with Dr. Escobedo -plans for repair in November # hypokalemia: -electrolyte protocol # thrombocytopenia: -due to etoh abuse, will trend # IP status, will need > 48 hours for eval/mgmt of above Subjective: Up in chair. No issues. Tremors. No pain. No specific complaints Objective: Vital Signs Temp Pulse Resp BP Pulse Ox 36.3 C 121 H 28 H 121/99 H 95 02/25/18 11:54 02/25/18 11:54 02/25/18 11:54 02/25/18 11:54 02/25/18 11:54 Laboratory Results 02/25/18 04:25 02/25/18 04:25 02/24/18 02/25/18 02/26/18 05:59 05:59 05:59 Intake Total 2650 Balance 2650 PT 14.3 SEC (12.0-15.0) 02/24/18 19:09 INR 1.09 (0.83-1.16) 02/24/18 19:09 - Physical Exam Constitutional: appears nourished, not in pain, chronically ill appearing Eyes: PERRL, anicteric sclera, EOMI Ears, Nose, Mouth, Throat: moist mucous membranes, hearing normal, ears appear normal Cardiovascular: tachycardia, No JVD, No edema Respiratory: no respiratory distress, no rales or rhonchi, reduced air movement Gastrointestinal: normoactive bowel sounds, No tenderness, No ascites Skin: warm, normal color, No mottled Musculoskeletal: no joint effusions, muscular tenderness, abnormal gait, generalized weakness Psychiatric: not anxious, poor insight, poor judgement, poor memory, No thought process linear ICD10 Worksheet Patient Problems: Problems Problem Status Onset Aortic stenosis Acute Hiccups Acute Tachycardia Acute Wernicke encephalopathy Acute Alcohol dependence with withdrawal Acute Ataxia Acute
--- NOTE | 2018-02-25 15:56 | ASMTCMCOM ---
CM Note CM Note Notes: CM provided education on ETOH. Pt reports he wants to stop drinking and says AA meetings are helpful. He says he attends about 2x/week. Pt reports in the past when he was court ordered to not drink was the only time he was sober in the past 16 years. Pt not interested in rehab at this time. CM to follow. Date Signed: 02/25/2018 03:55 PM Electronically Signed By:ROSE MARY Kent
[2018-02-26] MEDS: THIAMINE HCL 500 MG in NS 100 ML IV SCH ×3 (06:07→21:30)
[2018-02-26] MEDS: MULTIVITAMINS W-MINERALS 1 EACH TAB PO SCH (09:37)
[2018-02-26] MEDS: FOLIC ACID 1 MG TAB PO SCH (09:37)
[2018-02-26] MEDS ORDERED: POTASSIUM CL 10 MEQ TAB PO ONE ×3 (09:45→20:55)
[2018-02-26] MEDS ORDERED: MAGNESIUM SULF 1 GM/DEXTROSE 100 ML IV ONE (09:45)
--- NOTE | 2018-02-26 12:18 | HOSPPROG ---
Hospitalist Progress Note Assessment/Plan: 62 yo M with PMH of aortic stenosis s/p AVR as well as ascending aortic aneurysm presenting with acute encephalopathy and gait instability in the setting of heavy etoh abuse. First encounter, chart reviewed. # etoh use disorder, severe and withdrawal -patient with prior hospitalization for same, -was at the [facility] prior to admission and reports not having a drink for 3 days -CIWA -tachycardic and appears to be withdrawing when I evaluated (place on low dose beta gabriel) -placed on low dose gabapentin to help w concern fo seizures # metabolic encephalopathy: -suspect patient with Wernicke's encephalopathy due to chronic etoh abuse -patient significant memory issues as well as gait instability. -high dose thiamine, -pt/ot -he knows where he is and that he is falling #fever of 38.5 -will follow, only one -reviewed his chest x ray that shows no definitive pna # alcoholic hepatitis: -recheck labs in a.m. # VHD: -s/p bioprosthetic aortic valve replacement, -no e/o decompensation currently # ascending aortic aneurysm: - noted incidentally at his last hospitalization, -followed up with Dr. Escobedo -plans for repair in November # hypokalemia: -electrolyte protocol # thrombocytopenia: -due to etoh abuse, will trend #Plan: he wants to go home but doubtful he can walk safely. He clearly is withdrawing. He knows alcohol is a problem for him. CM involved. Subjective: Dontae said he is feeling fine and knows alcohol is a problem. Objective: Vital Signs Temp Pulse Resp BP Pulse Ox 36.6 C 90 16 135/94 H 94 02/26/18 08:00 02/26/18 08:00 02/26/18 04:00 02/26/18 08:00 02/26/18 08:00 Laboratory Results 02/25/18 04:25 02/26/18 04:23 02/25/18 02/26/18 02/27/18 05:59 05:59 05:59 Intake Total 2650 240 Output Total 300 Balance 2650 -60 PT 14.3 SEC (12.0-15.0) 02/24/18 19:09 INR 1.09 (0.83-1.16) 02/24/18 19:09 - Physical Exam Constitutional: appears nourished, chronically ill appearing Eyes: PERRL Ears, Nose, Mouth, Throat: hearing normal Cardiovascular: regular rate and rhythym, tachycardia Respiratory: no respiratory distress Skin: warm Musculoskeletal: generalized weakness Psychiatric: poor insight, poor judgement, No not encephalopathic (he knows his name and where he is but has trouble keeping a conversation) ICD10 Worksheet Patient Problems: Problems Problem Status Onset Alcohol dependence with withdrawal Acute Ataxia Acute Wernicke encephalopathy Acute Aortic stenosis Acute Hiccups Acute Tachycardia Acute
[2018-02-26] MEDS: LORazepam 2 MG/ML INJ IVP PRN (21:29)
[2018-02-26] MEDS: METOPROLOL TARTRATE 25 MG TAB PO SCH (21:31)
[2018-02-26] MEDS: GABAPENTIN 100 MG CAP PO SCH (21:31)
[2018-02-26] MEDS ORDERED: hydrALAZINE 25 MG TAB PO PRN (23:49)
[2018-02-27] MEDS: THIAMINE HCL 500 MG in NS 100 ML IV SCH ×3 (05:23→21:44)
[2018-02-27] MEDS: METOPROLOL TARTRATE 25 MG TAB PO SCH ×2 (08:46→20:04)
[2018-02-27] MEDS: GABAPENTIN 100 MG CAP PO SCH ×2 (08:48→20:04)
[2018-02-27] MEDS: MULTIVITAMINS W-MINERALS 1 EACH TAB PO SCH (08:48)
[2018-02-27] MEDS: FOLIC ACID 1 MG TAB PO SCH (08:48)
[2018-02-27] MEDS ORDERED: POTASSIUM CL 10 MEQ TAB PO ONE ×2 (10:50→19:25)
[2018-02-27] MEDS ORDERED: LORazepam 1 MG TAB PO PRN (10:51)
--- NOTE | 2018-02-27 15:25 | HOSPPROG ---
Hospitalist Progress Note Assessment/Plan: 62 yo M with PMH of aortic stenosis s/p AVR as well as ascending aortic aneurysm presenting with acute encephalopathy and gait instability in the setting of heavy etoh abuse. First encounter, chart reviewed. # etoh use disorder, severe and withdrawal -patient with prior hospitalization for same, -was at the [facility] prior to admission and reports not having a drink for 3 days -CIWA -actively withdrawing today, controlled w oral ativan, on beta gabriel in addition # metabolic encephalopathy: -suspect patient with Wernicke's encephalopathy due to chronic etoh abuse -patient significant memory issues as well as gait instability which are ongoing -high dose thiamine -pt/ot #fever of 38.5 -will follow, only one -reviewed his chest x ray that shows no definitive pna -blood cx shows no gowth # alcoholic hepatitis: -labs slightly worse today # VHD: -s/p bioprosthetic aortic valve replacement, -no e/o decompensation currently # ascending aortic aneurysm: - noted incidentally at his last hospitalization, -followed up with Dr. Escobedo -plans for repair in November # hypokalemia: -electrolyte protocol # thrombocytopenia: -due to etoh abuse, will trend #Plan: continue supportive treatment, he is unable to go home. Tremulous and has ongoing encephalopathy. Subjective: Dontae wants to get his truck and tools, worried he will lose them. Has no c/o pain. Objective: Vital Signs Temp Pulse Resp BP Pulse Ox 36.8 C 89 24 H 147/92 H 91 L 02/27/18 11:34 02/27/18 11:34 02/27/18 11:34 02/27/18 11:34 02/27/18 11:34 Laboratory Results 02/25/18 04:25 02/27/18 04:33 02/26/18 02/27/18 02/28/18 05:59 05:59 05:59 Intake Total 240 200 Output Total 300 Balance -60 200 PT 14.3 SEC (12.0-15.0) 02/24/18 19:09 INR 1.09 (0.83-1.16) 02/24/18 19:09 - Physical Exam Constitutional: unkempt Eyes: PERRL Ears, Nose, Mouth, Throat: hearing normal Cardiovascular: regular rate and rhythym Skin: warm Musculoskeletal: generalized weakness, other (slightly tremeulous) Psychiatric: encephalopathic (knows his name, but due to withdrawals is having a hard time following through, doesn't know his age, but knows his date) ICD10 Worksheet Patient Problems: Problems Problem Status Onset Alcohol dependence with withdrawal Acute Ataxia Acute Wernicke encephalopathy Acute Aortic stenosis Acute Hiccups Acute Tachycardia Acute
[2018-02-28] MEDS: THIAMINE HCL 500 MG in NS 100 ML IV SCH ×2 (05:51→13:20)
[2018-02-28] MEDS: GABAPENTIN 100 MG CAP PO SCH ×2 (08:17→20:16)
[2018-02-28] MEDS: METOPROLOL TARTRATE 25 MG TAB PO SCH ×2 (08:17→20:15)
[2018-02-28] MEDS: MULTIVITAMINS W-MINERALS 1 EACH TAB PO SCH (08:17)
[2018-02-28] MEDS: FOLIC ACID 1 MG TAB PO SCH (08:17)
[2018-02-28] MEDS ORDERED: POTASSIUM CL 10 MEQ TAB PO ONE ×2 (10:10→19:56)
--- NOTE | 2018-02-28 14:45 | HOSPPROG ---
Hospitalist Progress Note Assessment/Plan: 62 yo M with PMH of aortic stenosis s/p AVR as well as ascending aortic aneurysm presenting with acute encephalopathy and gait instability in the setting of heavy etoh abuse. # etoh use disorder, severe and withdrawal -patient with prior hospitalization for same, -was at the [facility] prior to admission and reports not having a drink for 3 days -CIWA -better today, not as tremulous # metabolic encephalopathy: -suspect patient with Wernicke's encephalopathy due to chronic etoh abuse -patient significant memory issues as well as gait instability which are ongoing -changed thiamine to po -was able to ambulate today on his own #fever of 38.5 -will follow, only one -reviewed his chest x ray that shows no definitive pna -blood cx shows no gowth # alcoholic hepatitis: -recheck labs in a.m. # VHD: -s/p bioprosthetic aortic valve replacement, -no e/o decompensation currently # ascending aortic aneurysm: - noted incidentally at his last hospitalization, -followed up with Dr. Escobedo -plans for repair in November # hypokalemia: -electrolyte protocol # thrombocytopenia: -due to etoh abuse, will trend #Plan: CM giving him resources, high risk for drinking again, He says he is motivated to quit. Recheck labs in a.m. asked CM to get him an appt [facility] so he has some type of follow up. Subjective: Dontae has no complaints, says he is feeling better daily. Objective: Vital Signs Temp Pulse Resp BP Pulse Ox 36.9 C 85 24 H 151/93 H 94 02/28/18 11:54 02/28/18 11:54 02/28/18 11:54 02/28/18 11:54 02/28/18 11:54 Laboratory Results 02/25/18 04:25 02/28/18 04:32 02/27/18 02/28/18 03/01/18 05:59 05:59 05:59 Intake Total 200 140 Output Total 140 Balance 200 0 PT 14.3 SEC (12.0-15.0) 02/24/18 19:09 INR 1.09 (0.83-1.16) 02/24/18 19:09 - Physical Exam Constitutional: appears nourished, not in pain, chronically ill appearing Eyes: PERRL, icteric sclera Ears, Nose, Mouth, Throat: hearing normal Respiratory: no respiratory distress Skin: warm Musculoskeletal: generalized weakness Psychiatric: interacting appropriately ICD10 Worksheet Patient Problems: Problems Problem Status Onset Alcohol dependence with withdrawal Acute Ataxia Acute Wernicke encephalopathy Acute Aortic stenosis Acute Hiccups Acute Tachycardia Acute
--- NOTE | 2018-02-28 16:27 | ASMTCMCOM ---
CM Note CM Note Notes: CM met with member, he states he will be able to discharge home with room mate who does not drink. Member states the living situation is stable right now though he is nervous about being able to pay rent in a few months. He does not think he will be able to work after this hospitalization and is considering applying for SSD. Member states he is not aware of [facility], CM [facility] and State ID#. Member states he does not have a PCP, CM will place [facility] referral to assist with connecting to Primary Care. Patient confirmed phone number is [phone]. Member given AA locations per request from hospitalistIsmael. Patient likely to discharge tomorrow. CM to follow. Discharge plan: independent, likely 03/01/18. Date Signed: 02/28/2018 04:27 PM Electronically Signed By:Ellie Loza
[2018-03-01 05:31] LABS: INR 0.97 (0.83-1.16); PROTIME(PATIENT) 13.1 SEC (12.0-15.0)
[2018-03-01] MEDS: MULTIVITAMINS W-MINERALS 1 EACH TAB PO SCH (08:33)
[2018-03-01] MEDS: FOLIC ACID 1 MG TAB PO SCH (08:34)
[2018-03-01] MEDS: GABAPENTIN 100 MG CAP PO SCH (08:34)
[2018-03-01] MEDS: METOPROLOL TARTRATE 25 MG TAB PO SCH (08:34)
[2018-03-01] MEDS ORDERED: THIAMINE HCL 100 MG TAB PO SCH (09:00)
[2018-03-01] MEDS ORDERED: POTASSIUM CL 10 MEQ TAB PO ONE (09:06)
[2018-03-01] MEDS ORDERED: MAGNESIUM SULF 1 GM/DEXTROSE 100 ML IV ONE (10:06)
--- NOTE | 2018-03-01 11:39 | HOSPPROG ---
Hospitalist Progress Note Assessment/Plan: 62 yo M with PMH of aortic stenosis s/p AVR as well as ascending aortic aneurysm presenting with acute encephalopathy and gait instability in the setting of heavy etoh abuse. # etoh use disorder, severe and withdrawal -patient with prior hospitalization for same, -was at the [facility] prior to admission and reports not having a drink for 3 days -resolved # metabolic encephalopathy: -suspect patient with Wernicke's encephalopathy due to chronic etoh abuse -patient significant memory issues as well as gait instability which are ongoing -changed thiamine to po -much improved #fever of 38.5 -will follow, only one -reviewed his chest x ray that shows no definitive pna -blood cx shows no gowth # alcoholic hepatitis: -recheck labs in a.m. # VHD: -s/p bioprosthetic aortic valve replacement, -no e/o decompensation currently # ascending aortic aneurysm: - noted incidentally at his last hospitalization, -followed up with Dr. Escobedo -plans for repair in November # hypokalemia: -electrolyte protocol # thrombocytopenia: -due to etoh abuse, will trend #Plan: dc home today,has a f/u app[facility] Subjective: Dontae said he is feeling much better today. Objective: Vital Signs Temp Pulse Resp BP Pulse Ox 36.8 C 86 16 158/100 H 94 03/01/18 07:46 03/01/18 07:46 03/01/18 07:46 03/01/18 07:46 03/01/18 07:46 Laboratory Results 02/25/18 04:25 03/01/18 04:35 02/28/18 03/01/18 03/02/18 05:59 05:59 05:59 Intake Total 140 350 Output Total 140 1 Balance 0 349 PT 13.1 SEC (12.0-15.0) 03/01/18 04:35 INR 0.97 (0.83-1.16) 03/01/18 04:35 - Physical Exam Constitutional: no apparent distress, appears nourished Eyes: PERRL Ears, Nose, Mouth, Throat: hearing normal Respiratory: no respiratory distress Gastrointestinal: normoactive bowel sounds Neurologic: AAOx3 Psychiatric: interacting appropriately ICD10 Worksheet Patient Problems: Problems Problem Status Onset Alcohol dependence with withdrawal Acute Ataxia Acute Wernicke encephalopathy Acute Aortic stenosis Acute Hiccups Acute Tachycardia Acute
[2018-03-01 11:43] VITALS: BP 134/100
--- NOTE | 2018-03-01 12:20 | ASMTCMCOM ---
CM Note CM Note Notes: CM spoke to Autumn Alcaraz NP. Pt is being discharged today. CM provided pt a bus pass. CM provided pt w/ clothes from the donation closet. CM made pt an appointment with the [facility] for this Thursday at 11:45AM. Appointment has been inputted into [employer]. CM notified pt of the appointment. No other needs at this time. CM available for changes. Plan: Independent Date Signed: 03/01/2018 12:19 PM Electronically Signed By:ROSE MARY Gutierrez
--- NOTE | 2018-03-01 13:48 | GDS ---
DISCHARGE DIAGNOSES: 1. Severe alcohol use disorder. 2. Metabolic encephalopathy. 3. Fever. 4. Alcoholic hepatitis. 5. Valvular heart disease. 6. Ascending aortic aneurysm. 7. Hypokalemia. HISTORY: Briefly, the patient is a 62-year-old male with a past medical history of aortic stenosis, status post aortic valve replacement, as well as an ascending aortic aneurysm, who presented with acu te encephalopathy and gait instability in the setting of heavy alcohol use. He went through withdraw als that were well managed during his hospital stay. Many discussions with the patient about the imp acts of the alcohol. He will be discharged home and further follow up with [facility]. An appo intment has been made for him. In addition, he is talking about moving to [facility] to li ve with his brother who may be able to give him more support than he is getting here. HOSPITAL COURSE: 1. Severe alcohol use disorder. He has been here a few times for the exact same issue. This has si nce resolved. 2. Metabolic encephalopathy. He was treated with high-dose IV thiamine with significant improvement . Concern that he has Wernicke's encephalopathy due to chronic alcohol use. 3. Fever. This was once. Reviewed his chest x-ray, that showed no pneumonia. Blood cultures showe d no growth. 4. Alcoholic hepatitis. His labs have improved. 5. VHD. He is status post bioprosthetic aortic valve replacement. No etiology of decompensation du ring his stay. 6. Ascending aortic aneurysm. He has an appointment to follow up with Dr. Escobedo this November for repair. 7. Hypokalemia, on the electrolyte protocol. 8. Thrombocytopenia. This is secondary to alcohol use. DISCHARGE CONDITION: Stable. Blood pressure is 134/100, heart rate of 89, respiratory rate of 18, O 2 saturation on room air 94%. Temperature is 36.5 Celsius. DISCHARGE MEDICATIONS: Please see the EMR. DISCHARGE INSTRUCTIONS: 1. To follow up with [facility] this Thursday at 11:45. 2. To take thiamine and folic acid daily. 3. Reviewed with him the stress of alcohol on his brain and causing Wernicke's encephalopathy. 4. Recommend he go to Alcoholics Anonymous. Case Management has given resources. /[id number]/MODL
== END 2018-03-01 12:30 | disposition home or self-care (01) | DRG 52 ==
LOC: OBSVTOIN 15:09 → F3E 16:05
PROVIDERS: ADMIT Internal Medicine; ATTEND Internal Medicine
DX: G93.41 Metabolic encephalopathy (principal); I38 Endocarditis, valve unspecified; K70.10 Alcoholic hepatitis without ascites; F10.239 Alcohol dependence with withdrawal, unspecified; E51.2 Wernicke's encephalopathy; E86.9 Volume depletion, unspecified; I71.4 Abdominal aortic aneurysm, without rupture; E87.6 Hypokalemia; Z95.4 Presence of other heart-valve replacement
CPT/HCPCS: 80305; 96374; 97110-GO; 97116-GP; 97162-GP; 97166-GO; 97530-GO; 97530-GP; 97535-GO; G0480; G8978-GP-CL; G8979-GP-CI; J2060; J2405; J3411; J3475

== ENCOUNTER 2018-03-12 10:36 | Inpatient (IN) | payer MEDICAID ==
[2018-03-12] MEDS ORDERED: NS 1,000 ML IV ONE (12:55)
[2018-03-12] MEDS ORDERED: THIAMINE HCL 500 MG in NS 100 ML IV ONE (12:56)
[2018-03-12] MEDS ORDERED: LORazepam 2 MG/ML INJ IVP ONE (12:56)
--- NOTE | 2018-03-12 13:00 | EDPHY ---
H & P Stated Complaint: Weakness Time Seen by Provider: 03/12/18 12:50 HPI/ROS: CHIEF COMPLAINT: Imbalance HISTORY OF PRESENT ILLNESS: The patient is a 62-year-old alcoholic man with history of 1 acute encephalopathy. He comes to the emergency department complaining of imbalance and difficulty ambulating. He was admitted with similar symptoms around of this year. He was discharged with thiamine. He states he has not been taking this. He does continue to drink. He is shaky and tachycardic. He also has a history of a aortic valve replacement 2014 and has plans to have AAA repair next year. He denies abdominal pain, chest pain or shortness of breath. No GI symptoms. No recent fevers or illness. No dizziness. His last drink was yesterday evening. Severity: Moderate Modifying factors: None REVIEW OF SYSTEMS: Constitutional: denies: chills, fever, recent illness, recent injury EENTM: denies: blurred vision, double vision, nose congestion Respiratory: denies: cough, shortness of breath Cardiac: denies: chest pain, irregular heart rate, lightheadedness, palpitations Gastrointestinal/Abdominal: denies: abdominal pain, diarrhea, nausea, vomiting, blood streaked stools Genitourinary: denies: dysuria, frequency, hematuria, pain Musculoskeletal: See HPI Skin: denies: lesions, rash, jaundice, bruising Neurological: See HPI denies: headache, numbness, paresthesia, tingling, dizziness, weakness Hematologic/Lymphatic: denies: blood clots, easy bleeding, easy bruising Immunologic/allergic: denies: HIV/AIDS, transplant 10 systems reviewed and negative except as noted EXAM: GENERAL: Well-appearing, well-nourished and in no acute distress. HEAD: Atraumatic, normocephalic. EYES: Pupils equal round and reactive to light, extraocular movements intact, sclera anicteric, conjunctiva are normal. ENT: TMs normal, nares patent, oropharynx clear without exudates. Moist mucous membranes. NECK: Normal range of motion, supple without lymphadenopathy or JVD. LUNGS: Breath sounds clear to auscultation bilaterally and equal. No wheezes rales or rhonchi. HEART: Regular rate and rhythm without murmurs, rubs or gallops. ABDOMEN: Soft, nontender, normoactive bowel sounds. No guarding, no rebound. No masses appreciated. BACK: No CVA tenderness, no spinal tenderness, step-offs or deformities EXTREMITIES: Normal range of motion, no pitting or edema. No clubbing or cyanosis. NEUROLOGICAL: Significant tremors, Cranial nerves II through XII grossly intact. Normal speech, unable to ambulate because of balance he states that his strength is good. 5/5 strength in each extremity when tested individually, normal movement but shaky in all extremities, normal sensation, normal reflexes PSYCH: Normal mood, normal affect. SKIN: Warm, dry, normal turgor, no visible rashes or lesions. Source: Patient, Old records - Personal History Current Tetanus/Diphtheria Vaccine: Yes - Medical/Surgical History Hx Asthma: No Hx Chronic Respiratory Disease: No Hx Diabetes: No Hx Cardiac Disease: Yes Hx Renal Disease: No Hx Cirrhosis: No Hx Alcoholism: Yes Hx HIV/AIDS: No Hx Splenectomy or Spleen Trauma: No Other PMH: LT wrist surgery in December 2013. aortic valve replacement 2014; ETOH with falls. Thiamin deficiency, AAA - Family History Significant Family History: No pertinent family hx - Social History Smoking Status: Never smoked Alcohol Use: Heavy Drug Use: None Constitutional: Initial Vital Signs Temperature (C) 36.8 C 03/12/18 10:51 Heart Rate 136 H 03/12/18 10:51 Respiratory Rate 20 03/12/18 10:51 Blood Pressure 94/65 L 03/12/18 10:51 O2 Sat (%) 97 03/12/18 10:51 O2 Delivery Mode Room Air Allergies/Adverse Reactions: No Known Allergies Allergy (Verified 03/12/18 10:54) Home Medications: Medication Instructions Recorded NK [No Known Home Meds] 03/12/18 Medical Decision Making ED Course/Re-evaluation: 1:20 p.m. I discussed the case with hospital service who will accept to Dr. Pierre. Differential Diagnosis: Partial list of the Differential diagnosis considered include but were not limited to; encephalopathy, dehydration, withdrawal and although unlikely based on the history and physical exam, I also considered infection, head injury. - Data Points Laboratory Results: Laboratory Results 03/12/18 12:10 03/12/18 12:10 03/12/18 03/12/18 12:10 12:10 WBC 14.68 10^3/uL H 10^3/uL (3.80-9.50) RBC 4.74 10^6/uL 10^6/uL (4.40-6.38) Hgb 16.5 g/dL g/dL (13.7-17.5) Hct 47.8 % % (40.0-51.0) MCV 100.8 fL H fL (81.5-99.8) MCH 34.8 pg H pg (27.9-34.1) MCHC 34.5 g/dL g/dL (32.4-36.7) RDW 13.4 % % (11.5-15.2) Plt Count 358 10^3/uL 10^3/uL (150-400) MPV 9.0 fL fL (8.7-11.7) Neut % (Auto) 90.3 % H % (39.3-74.2) Lymph % (Auto) 3.7 % L % (15.0-45.0) [place] % (Auto) 5.1 % % (4.5-13.0) Eos % (Auto) 0.0 % L % (0.6-7.6) Baso % (Auto) 0.2 % L % (0.3-1.7) Nucleat RBC Rel Count 0.1 % % (0.0-0.2) Absolute Neuts (auto) 13.26 10^3/uL H 10^3/uL (1.70-6.50) Absolute Lymphs (auto) 0.54 10^3/uL L 10^3/uL (1.00-3.00) Absolute Monos (auto) 0.75 10^3/uL 10^3/uL (0.30-0.80) Absolute Eos (auto) 0.00 10^3/uL L 10^3/uL (0.03-0.40) Absolute Basos (auto) 0.03 10^3/uL 10^3/uL (0.02-0.10) Absolute Nucleated RBC 0.01 10^3/uL 10^3/uL (0-0.01) Immature Gran % 0.7 % % (0.0-1.1) Immature Gran # 0.10 10^3/uL 10^3/uL (0.00-0.10) RBC/WBC/PLT Morphology TNP Platelet Estimate TNP Sodium 138 mEq/L mEq/L (135-145) Potassium 4.4 mEq/L mEq/L (3.5-5.2) Chloride 98 mEq/L mEq/L (97-110) Carbon Dioxide 21 mEq/l L mEq/l (22-31) Anion Gap 19 mEq/L H mEq/L (6-14) BUN 9 mg/dL mg/dL (7-23) Creatinine 1.4 mg/dL H mg/dL (0.7-1.3) Estimated GFR 52 Glucose 118 mg/dL H mg/dL (70-100) Calcium 9.8 mg/dL mg/dL (8.5-10.4) Total Bilirubin 2.1 mg/dL H mg/dL (0.1-1.4) Conjugated Bilirubin 0.6 mg/dL H mg/dL (0.0-0.5) Unconjugated Bilirubin 1.5 mg/dL H mg/dL (0.0-1.1) AST 53 IU/L IU/L (17-59) ALT 44 IU/L IU/L (21-72) Alkaline Phosphatase 106 IU/L IU/L (38-126) Total Protein 7.7 g/dL g/dL (6.3-8.2) Albumin 4.6 g/dL g/dL (3.5-5.0) Medications Given: Dexmedetomidine HCl 400 mcg/ (Sodium Chloride) 104 mls @ 0 mls/hr IV CONT YASHIRA; Titrate PRN Reason: Protocol Stop: 09/08/18 16:29 Last Admin: 03/12/18 17:59 Dose: 104 mls Sodium Chloride (Ns) 1,000 mls @ 75 mls/hr IV CONT YASHIRA Stop: 09/08/18 17:29 Last Admin: 03/12/18 17:59 Dose: 1,000 mls Lorazepam (Ativan Injection) 2 mg IVP Q6HRS YASHIRA Stop: 03/16/18 17:59 Last Admin: 03/12/18 18:03 Dose: 2 mg Discontinued Medications Sodium Chloride (Ns) 1,000 mls @ 0 mls/hr IV EDNOW ONE; Wide Open PRN Reason: Protocol Stop: 03/12/18 12:56 Last Admin: 03/12/18 13:10 Dose: 1,000 mls Thiamine HCl 500 mg/ Sodium (Chloride) 105 mls @ 210 mls/hr IV ONCE ONE Stop: 03/12/18 13:25 Last Admin: 03/12/18 14:21 Dose: 105 mls Lorazepam (Ativan Injection) 2 mg IVP EDNOW ONE Stop: 03/12/18 12:57 Last Admin: 03/12/18 13:10 Dose: 2 mg Lorazepam (Ativan) 0 mg PO Q4H PRN; Protocol PRN Reason: Alcohol Withdrawal w/IV access Stop: 03/13/18 02:07 Last Admin: 03/12/18 14:21 Dose: 4 mg Lorazepam (Ativan Injection) 0 mg IVP Q1H PRN; Protocol PRN Reason: Alcohol Withdrawal w/IV access Stop: 03/13/18 02:07 Last Admin: 03/12/18 15:52 Dose: 4 mg Departure - Departure Disposition: [facility] In[facility] Acute Clinical Impression: Wernicke encephalopathy Alcohol dependence with withdrawal Qualifiers: Complication of substance-induced condition: uncomplicated Qualified Code(s): F10.230 - Alcohol dependence with withdrawal, uncomplicated Condition: Fair
[2018-03-12 13:08] LABS: PLATELET COUNT 358 10^3/uL (150-400)
[2018-03-12] MEDS ORDERED: LORazepam 1 MG TAB PO PRN (14:07)
[2018-03-12] MEDS ORDERED: LORazepam 2 MG/ML INJ ONE (14:17)
--- NOTE | 2018-03-12 14:27 | ASMTLACE ---
JOSE Comorbidities - select Answers: Coronary Artery Disease all that apply History of falls Moderate or severe liver or renal disease # of Emergency department Answers: 3-4 visits in the last 6 months Social determinants Answers: History of substance abuse (ETOH, street drugs, prescription drugs, etc.) Score: 15 Date Signed: 03/12/2018 02:26 PM Electronically Signed By:Meenakshi Yoo RN
[2018-03-12] MEDS: LORazepam 2 MG/ML INJ IVP PRN ×2 (15:22→15:52)
[2018-03-12] MEDS ORDERED: LORazepam 2 MG/ML INJ IVP PRN (16:01)
[2018-03-12] MEDS ORDERED: FLUMAZENIL 0.5 MG/5 ML MDV IVP PRN (16:08)
[2018-03-12] MEDS: DEXMEDETOMIDINE HCL 400 MCG in NS 100 ML IV SCH ×2 (16:43→17:59)
--- NOTE | 2018-03-12 17:08 | PDGENHP ---
History and Physical - Chief Complaint alcohol withdrawal - History of Present Illness Mr Chao is a 62 year old male with pmh of etoh abuse, CAD, aortic valve replacement who presented to the ER in etoh withdrawal. Patient is at this time , confabulating and hallucinating and not really able to provide any history except that he drinks a quart of vodka daily, and his last drink was about two days ago. 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 he denied any CP, NV, fever,s chills, cough or other symptoms. History Information - Allergies/Home Medication List Allergies/Adverse Reactions: No Known Allergies Allergy (Verified 03/12/18 10:54) Home Medications: NK [No Known Home Meds] 03/12/18 [Last Taken Unknown] I have personally reviewed and updated: family history, medical history, social history, surgical history Past Medical History: See HPI List - Past Medical History coronary artery disease (alcohol abuse, ) - Surgical History Additional surgical history: See HPI List, aortic valve replacement - Family History Positive for: non-pertinent Additional family history: Both parents - alcoholism - Social History Smoking Status: Unknown if ever smoked Alcohol Use: Heavy Drug Use: Other Additional social history: See HPI List Review of Systems Review of Systems: ROS: 10pt was reviewed & negative except for what was stated in HPI & below Physical Exam Physical Exam: Temp Pulse Resp BP Pulse Ox 36.4 C 90 18 119/86 H 95 03/12/18 16:42 03/12/18 16:42 03/12/18 16:42 03/12/18 16:42 03/12/18 16:42 Constitutional: uncomfortable, unkempt Eyes: icteric sclera, other (pupils dilated) Ears, Nose, Mouth, Throat: moist mucous membranes, hearing normal, ears appear normal, no oral mucosal ulcers Cardiovascular: tachycardia Respiratory: no respiratory distress, no rales or rhonchi, clear to auscultation Gastrointestinal: normoactive bowel sounds, soft, non-tender abdomen, no palpable masses Genitourinary: no bladder fullness, no bladder tenderness Skin: warm, normal color, no rashes or abrasions, no fluctuance, no induration, No mottled Musculoskeletal: other (tremulous. unable assess strength due to AMS) Neurologic: other (knows name and that he is in [place], otherwise not oriented) Psychiatric: other (confused and actively hallucinating. confabulating ) Lab Data & Imaging Review 03/12/18 12:10 03/12/18 12:10 WBC 14.68 10^3/uL (3.80-9.50) H 03/12/18 12:10 RBC 4.74 10^6/uL (4.40-6.38) 03/12/18 12:10 Hgb 16.5 g/dL (13.7-17.5) 03/12/18 12:10 Hct 47.8 % (40.0-51.0) 03/12/18 12:10 MCV 100.8 fL (81.5-99.8) H 03/12/18 12:10 MCH 34.8 pg (27.9-34.1) H 03/12/18 12:10 MCHC 34.5 g/dL (32.4-36.7) 03/12/18 12:10 RDW 13.4 % (11.5-15.2) 03/12/18 12:10 Plt Count 358 10^3/uL (150-400) 03/12/18 12:10 MPV 9.0 fL (8.7-11.7) 03/12/18 12:10 Neut % (Auto) 90.3 % (39.3-74.2) H 03/12/18 12:10 Lymph % (Auto) 3.7 % (15.0-45.0) L 03/12/18 12:10 [place] % (Auto) 5.1 % (4.5-13.0) 03/12/18 12:10 Eos % (Auto) 0.0 % (0.6-7.6) L 03/12/18 12:10 Baso % (Auto) 0.2 % (0.3-1.7) L 03/12/18 12:10 Nucleat RBC Rel Count 0.1 % (0.0-0.2) 03/12/18 12:10 Absolute Neuts (auto) 13.26 10^3/uL (1.70-6.50) H 03/12/18 12:10 Absolute Lymphs (auto) 0.54 10^3/uL (1.00-3.00) L 03/12/18 12:10 Absolute Monos (auto) 0.75 10^3/uL (0.30-0.80) 03/12/18 12:10 Absolute Eos (auto) 0.00 10^3/uL (0.03-0.40) L 03/12/18 12:10 Absolute Basos (auto) 0.03 10^3/uL (0.02-0.10) 03/12/18 12:10 Absolute Nucleated RBC 0.01 10^3/uL (0-0.01) 03/12/18 12:10 Immature Gran % 0.7 % (0.0-1.1) 03/12/18 12:10 Immature Gran # 0.10 10^3/uL (0.00-0.10) 03/12/18 12:10 RBC/WBC/PLT Morphology TNP 03/12/18 12:10 Platelet Estimate TNP 03/12/18 12:10 Sodium 138 mEq/L (135-145) 03/12/18 12:10 Potassium 4.4 mEq/L (3.5-5.2) 03/12/18 12:10 Chloride 98 mEq/L (97-110) 03/12/18 12:10 Carbon Dioxide 21 mEq/l (22-31) L 03/12/18 12:10 Anion Gap 19 mEq/L (6-14) H 03/12/18 12:10 BUN 9 mg/dL (7-23) 03/12/18 12:10 Creatinine 1.4 mg/dL (0.7-1.3) H 03/12/18 12:10 Estimated GFR 52 03/12/18 12:10 Glucose 118 mg/dL (70-100) H 03/12/18 12:10 Calcium 9.8 mg/dL (8.5-10.4) 03/12/18 12:10 Total Bilirubin 2.1 mg/dL (0.1-1.4) H 03/12/18 12:10 Conjugated Bilirubin 0.6 mg/dL (0.0-0.5) H 03/12/18 12:10 Unconjugated Bilirubin 1.5 mg/dL (0.0-1.1) H 03/12/18 12:10 AST 53 IU/L (17-59) 12/14/18 12:10 ALT 44 IU/L (21-72) 03/12/18 12:10 Alkaline Phosphatase 106 IU/L (38-126) 03/12/18 12:10 Total Protein 7.7 g/dL (6.3-8.2) 03/12/18 12:10 Albumin 4.6 g/dL (3.5-5.0) 03/12/18 12:10 Visualized and Interpreted imaging results: Yes Interpretation: CT with no abnormality Assessment & Plan Assessment: alcohol dependence with acute withdrawal- patient actively withdrawing. Received 12mg ativan and still tremulous and confabulating. Labs consistent with heavy etoh abuse. -thiamine, folic acid, MVI -precedex gtt -ICU -seizure precautions -IVNS -CIWA assessment MAICO- patient appears hypovolemic. Will give IV fluids and recheck renal function in am. Transaminitis-consistent with heavy alcohol abuse. no abdominal tenderness or pain to suggest etoh hepatitis. Monitor LFTs. no etoh. CAD- on asa, although not able to confirm he is taking this. PPX- SCDs, Lovenox Fluids- IVNS Lytes- WNL, monitor Nutrition- NPO for now Cor- Unable to assess Dispo- ICU inpatinet for DTs, acute alcohol withdrawal.
[2018-03-12] MEDS ORDERED: NS 1,000 ML IV SCH (17:30)
[2018-03-12] MEDS: LORazepam 2 MG/ML INJ IVP SCH (18:03)
[2018-03-12] MEDS: FAMOTIDINE 20 MG/NACL 50 ML IV SCH (21:35)
[2018-03-13] MEDS: LORazepam 2 MG/ML INJ IVP SCH ×2 (00:12→06:24)
[2018-03-13 04:51] LABS: PLATELET COUNT 204 10^3/uL (150-400)
[2018-03-13 04:55] LABS: INR 1.05 (0.83-1.16); PROTIME(PATIENT) 13.9 SEC (12.0-15.0)
[2018-03-13] MEDS ORDERED: PROTOCOL MAGNESIUM 1 DOSE IV PRN (06:51)
[2018-03-13] MEDS ORDERED: PROTOCOL POTASSIUM 1 DOSE MISC PRN (06:51)
[2018-03-13] MEDS: ENOXAPARIN 40 MG/0.4 ML SYR SC SCH (08:29)
[2018-03-13] MEDS: FOLIC ACID 1 MG TAB PO SCH (08:30)
[2018-03-13] MEDS: FAMOTIDINE 20 MG/NACL 50 ML IV SCH (08:30)
[2018-03-13] MEDS ORDERED: MAGNESIUM SULF 2 GM/WATER 50 ML IV ONE (08:37)
[2018-03-13] MEDS ORDERED: POTASSIUM CL 10 MEQ TAB PO ONE ×2 (08:37→20:14)
[2018-03-13] MEDS: THIAMINE HCL 500 MG in NS 100 ML IV SCH (08:59)
[2018-03-13] MEDS ORDERED: THIAMINE HCL 100 MG TAB PO SCH (09:00)
--- NOTE | 2018-03-13 11:23 | HOSPPROG ---
Hospitalist Progress Note Assessment/Plan: alcohol dependence in acute withdrawal- required precedex overnight, now off -d/c scheduled IV ativan and schedule librium 25 mg tid plus prn ativan per ciwa -cont thiamine, folic acid, MVI MAICO- Cr normalized after IVF's Alcoholic liver disease - LFT's / bili improved today. INR normal and albumin ok so he still has synthetic function -supportive care CAD- stable PPX- SCDs, Lovenox Fluids- NS Lytes- Mag, K protocol Nutrition- regular diet Full code Dispo- cont inpt, SDU Subjective: Pt feels better. He is able to converse, says he is living in his van, planning to move but not sure where he is going. No fevers. No N/V. Taking po. Objective: Vital Signs Temp Pulse Resp BP Pulse Ox 36.8 C 80 19 129/96 H 99 03/13/18 07:25 03/13/18 07:25 03/13/18 07:25 03/13/18 07:25 03/13/18 07:25 Laboratory Results 03/13/18 04:30 03/13/18 04:30 03/12/18 03/13/18 03/14/18 05:59 05:59 05:59 Intake Total 2415 Output Total 0 Balance 2415 PT 13.9 SEC (12.0-15.0) 03/13/18 04:30 INR 1.05 (0.83-1.16) 03/13/18 04:30 - Physical Exam Constitutional: no apparent distress Eyes: PERRL Ears, Nose, Mouth, Throat: moist mucous membranes Cardiovascular: regular rate and rhythym Respiratory: no respiratory distress, clear to auscultation Gastrointestinal: normoactive bowel sounds, soft, non-tender abdomen Skin: warm Musculoskeletal: full muscle strength Neurologic: AAOx3 Psychiatric: interacting appropriately ICD10 Worksheet Patient Problems: Problems Problem Status Onset Alcohol dependence with withdrawal Acute Wernicke encephalopathy Acute Aortic stenosis Acute Ataxia Acute Hiccups Acute Tachycardia Acute
--- NOTE | 2018-03-13 12:31 | PDMN ---
Medical Necessity Medical necessity: Pt meets INPT criteria per MD as of 03/12/18 and [facility] – [place] M-590 Delirium (est. LOS >2 MN for eval/mgmt of DTs, acute alcohol withdrawal requiring ICU care, IV meds).
[2018-03-13] MEDS: LORazepam 2 MG/ML INJ IVP PRN ×3 (15:00→17:43)
--- NOTE | 2018-03-13 15:24 | GCON ---
CRITICAL CARE CONSULT DATE OF CONSULTATION: 03/13/2018 HPI: This patient is a 62-year-old male with a history of alcohol abuse, who was brought to the [facility] department by a friend complaining of hallucinations, tremors, and he was, apparently, confabul ating in the ED. His last drink of his quart of vodka daily was a couple of days prior to admission. 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 He has h ad alcohol withdrawal in the past. By the time I saw him this morning, he had been on a Precedex dri p overnight and was getting scheduled Ativan. He was quite lucid during my conversation with him, in no distress. Denied any hallucinations. Was not tachycardic and not hypertensive and no longer had tremor. Apparently, there was substantial tremor later in the morning. REVIEW OF SYSTEMS: Otherwise negative. PAST MEDICAL HISTORY: Includes alcoholism, coronary artery disease, aortic stenosis with an aortic v alve replacement in the past. SOCIAL HISTORY: He drinks a quart of vodka a day. Smoking history is unknown. FAMILY HISTORY: Noncontributory. MEDICATIONS: At this time include Precedex, Lovenox, Pepcid, folate, normal saline, thiamin, and CIW A protocol. PHYSICAL EXAMINATION: VITAL SIGNS: At the time of my evaluation, blood pressure is 129/96, heart ra te of 80, sinus rhythm, respirations 19, oxygen saturation 99% on 2 L. GENERAL: He was awake, alert , in no apparent distress, oriented x3. Able to speak in full sentences without using accessory musc les for breathing without evidence of tremor. HEENT: Pupils equally round and reactive to light, no nicteric and noninjected. Mucous membranes moist without erythema or exudate. NECK: Supple without adenopathy. No jugular vein distention. Breath sounds clear to auscultation bilaterally without wh eezes, rubs, or rales. HEART: Regular rate and rhythm without murmurs, rubs, gallops. ABDOMEN: So ft, nondistended, nontender with normoactive bowel tones. EXTREMITIES: No clubbing, cyanosis, or ed jose. NEUROLOGIC: Nonfocal, including cranial nerves, deep tendon reflexes. No asterixis and no alyssa mor. SKIN: Warm and dry, without evidence of rash. OBJECTIVE DATA: Includes a white count of 7.5, hematocrit 39, platelets of 204. Basic metabolic lopze el was normal. Calcium 8.4, total bilirubin 2.1 on admission, down to 1.5. LFTs were normal. Album in 3.4. ASSESSMENT/PLAN: Alcohol withdrawal. He seems to be doing well. Has been off Precedex for several hours. I discussed with the nursing staff, as well as the hospitalist staff about trying scheduled L ibrium, which we started this morning to see if we can keep his Precedex drip off and minimize his At xi. We will still use that p.r.n., but if things seem to be relatively stable, we can probably zeinab ngrade him to med/surg as long as he remains stable. /[id number]/MODL
[2018-03-13] MEDS: chlordiazePOXIDE 25 MG CAP PO SCH ×2 (16:30→21:24)
--- NOTE | 2018-03-13 17:27 | ASMTCMCOM ---
CM Note CM Note Notes: Discussed pt in rounds and spoke with pt in the room. Pt has been living in his van, mostly drinking, but does have a work history and is now willing and able to pursue recovery. Pt given brochure for [facility] and email sent to [facility] to notify them of pt's interest in services, with pt's permission. Pt also given information about [facility] where pt can connect with bilingual patient support caseworker who will connect him with all [facility] resources. Pt also provided info on Alcohol recovery programs and AA meeting times. Pt likely to discharge tomorrow and will need medicaid transport back to his van. CM available to make follow up appointment with [facility] tomorrow should hospitalist request. CM to follow. D/C Plan: Independent Date Signed: 03/13/2018 05:26 PM Electronically Signed By:Nevaeh Alford
[2018-03-13] MEDS: FAMOTIDINE 20 MG TAB PO SCH (21:24)
[2018-03-14] MEDS: FOLIC ACID 1 MG TAB PO SCH (09:04)
[2018-03-14] MEDS: THIAMINE HCL 500 MG in NS 100 ML IV SCH (09:04)
[2018-03-14] MEDS: ENOXAPARIN 40 MG/0.4 ML SYR SC SCH (09:04)
[2018-03-14] MEDS: FAMOTIDINE 20 MG TAB PO SCH ×2 (09:05→21:11)
[2018-03-14] MEDS: chlordiazePOXIDE 25 MG CAP PO SCH ×3 (09:05→21:11)
[2018-03-14] MEDS ORDERED: POTASSIUM CL 10 MEQ TAB PO ONE ×2 (09:08→22:21)
[2018-03-14] MEDS ORDERED: MAGNESIUM SULF 1 GM/DEXTROSE 100 ML IV ONE (09:08)
--- NOTE | 2018-03-14 10:09 | HOSPPROG ---
Hospitalist Progress Note Assessment/Plan: alcohol dependence in acute withdrawal- off precedex, ciwa's improving -cont scheduled librium 25 mg tid plus prn ativan per ciwa -cont thiamine, folic acid, MVI MAICO- Cr normalized after IVF's Alcoholic liver disease - LFT's / bili improved today. INR normal and albumin ok so he still has synthetic function -supportive care CAD- stable PPX- SCDs, Lovenox Fluids- NS Lytes- Mag, K protocol Nutrition- regular diet Full code Dispo- cont inpt, transfer to med/surg Subjective: Pt feels better. Mentation improved. Still unsteady on his feet. No fevers/chills. No N/V. Objective: Vital Signs Temp Pulse Resp BP Pulse Ox 36.6 C 81 21 H 166/98 H 96 03/14/18 08:00 03/14/18 08:00 03/14/18 08:00 03/14/18 08:00 03/14/18 08:00 Laboratory Results 03/13/18 04:30 03/14/18 06:15 03/13/18 03/14/18 03/15/18 05:59 05:59 05:59 Intake Total 2415 2279 240 Output Total 0 1550 200 Balance 2415 729 40 PT 13.9 SEC (12.0-15.0) 03/13/18 04:30 INR 1.05 (0.83-1.16) 03/13/18 04:30 - Physical Exam Constitutional: no apparent distress Eyes: PERRL Ears, Nose, Mouth, Throat: moist mucous membranes Cardiovascular: regular rate and rhythym Respiratory: no respiratory distress Gastrointestinal: normoactive bowel sounds, soft, non-tender abdomen Skin: warm Musculoskeletal: abnormal gait Neurologic: AAOx3 Psychiatric: interacting appropriately ICD10 Worksheet Patient Problems: Problems Problem Status Onset Alcohol dependence with withdrawal Acute Wernicke encephalopathy Acute Aortic stenosis Acute Ataxia Acute Hiccups Acute Tachycardia Acute
[2018-03-14] MEDS ORDERED: METOPROLOL TARTRATE 25 MG TAB PO SCH (23:30)
[2018-03-15] MEDS ORDERED: METOPROLOL TARTRATE 25 MG TAB PO SCH (07:17)
[2018-03-15] MEDS ORDERED: POTASSIUM CL 10 MEQ TAB PO ONE (07:43)
[2018-03-15] MEDS ORDERED: MAGNESIUM SULF 1 GM/DEXTROSE 100 ML IV ONE ×2 (07:44→09:30)
[2018-03-15 08:07] VITALS: BP 151/104
[2018-03-15] MEDS: THIAMINE HCL 500 MG in NS 100 ML IV SCH (08:39)
[2018-03-15] MEDS: FAMOTIDINE 20 MG TAB PO SCH (08:40)
[2018-03-15] MEDS: chlordiazePOXIDE 25 MG CAP PO SCH (08:40)
[2018-03-15] MEDS: FOLIC ACID 1 MG TAB PO SCH (08:41)
[2018-03-15] MEDS: ENOXAPARIN 40 MG/0.4 ML SYR SC SCH (08:41)
--- NOTE | 2018-03-15 14:23 | ASMTDCNOTE ---
Case Management Discharge Discharge Order Complete? Answers: Yes Patient to Obtain Answers: Independently Medications Transportation Arranged Answers: Bus [employer] EMTALA Complete Answers: No Case Management Transport Answers: No Form Complete Faxed Final Orders Answers: No Agency/Facility Transfer Answers: No Report Printed & Faxed to Receiving Agency Family Notified Answers: No Discharge Comments Notes: Pts case discussed w/ Dr. Alford. Pt is being d/c'd today. CM made pt an appointment w/ [facility]. Appointment provided to pt on a piece of paper. CM inputted appointment into dc section of [employer]. CM available for changes. [facility] Sakshi Louis NP [address] [place] [address] [place] 03/16/18 at 9:45AM Plan: Independent Date Signed: 03/15/2018 11:21 AM Electronically Signed By:ROSE MARY Gutierrez
[2018-03-15] MEDS ORDERED: THIAMINE HCL 100 MG TAB PO SCH (16:08)
--- NOTE | 2018-03-15 19:02 | GDS ---
DISCHARGE DIAGNOSES: 1. Alcohol dependence, in acute withdrawal. 2. Acute kidney injury, resolved. 3. Alcoholic liver disease. 4. Coronary artery disease, stable. CONSULTANTS: Dr. Yovanny Kinney, tank washer. HISTORY: For details, please see history and physical dated March 12, 2018. In brief, the netta lua is a 62-year-old homeless male with a history of alcohol abuse, coronary artery disease, and aortic valve replacement, who presented to the emergency department in alcohol withdrawal. He was admitted to the hospital for further management. HOSPITAL COURSE: Patient was admitted to the step-down unit. He initially required high-dose IV Ati van, as well as a Precedex drip. He slowly improved and was weaned off the Precedex drip. He was tr ansitioned to oral Librium. His CIWA scores over the past 24 hours have been 1. He has been ambulat ory. He was evaluated by Physical Therapy, who felt he was safe for discharge home. He had a mild e levation of his LFTs, likely secondary to alcoholic hepatitis and probable underlying alcoholic liver disease. He was also started on metoprolol for hypertension and was given a prescription for this a t discharge. DISPOSITION: Patient is discharged home in stable condition. DISCHARGE MEDICATIONS: 1. Librium 25 mg p.o. b.i.d. for 2 days, then 25 mg once daily for 1 day, then off. 2. Folic acid 1 mg p.o. daily. 3. Metoprolol 25 mg p.o. b.i.d., #60, no refills. 4. Thiamine 100 mg p.o. daily, #30, no refills. FOLLOWUP: The patient should follow up in the [facility] for re-evaluation of his liver enzymes . The patient was given recent Path to Home resources, as well as coordinated entry to housing with add ress and hours for where he may obtain further housing assistance. /[id number]/MODL
== END 2018-03-15 12:56 | disposition home or self-care (01) | DRG 775 ==
LOC: OBSVTOIN 13:24 → F2N 17:08 → F3E 03-14 11:39
PROVIDERS: ADMIT Family Medicine; ATTEND Hospitalist
PROC: HZ2ZZZZ Detoxification Services for Substance Abuse Treatment (ICD-10-PCS; principal; 2018-03-12)
DX: F10.231 Alcohol dependence with withdrawal delirium (principal); N17.9 Acute kidney failure, unspecified; K70.9 Alcoholic liver disease, unspecified; E51.2 Wernicke's encephalopathy; I25.10 Atherosclerotic heart disease of native coronary artery without angina pectoris; Z95.2 Presence of prosthetic heart valve; Y90.9 Presence of alcohol in blood, level not specified; I10 Essential (primary) hypertension
CPT/HCPCS: 92523-GN; 92610-GN; 96374; 97161-GP; 97530-GP; J1650; J2060; J3411; J3475

== ENCOUNTER 2018-03-23 21:43 | Inpatient (IN) | payer MEDICAID ==
--- NOTE | 2018-03-23 21:54 | EDPHY ---
H & P Stated Complaint: R middle abd pain x 2-3 hours Time Seen by Provider: 03/23/18 21:53 HPI/ROS: HPI CHIEF COMPLAINT: Right-sided abdominal pain HISTORY OF PRESENT ILLNESS: Pleasant 62-year-old male, presents emergency room with right-sided abdominal pain. Patient reports this started around noon today after eating. He describes it as sharp stabbing right-sided abdominal pain right mid abdomen and right lower quadrant. Denies any testicular pain. Denies urinary symptoms, denies severe flank pain, denies vomiting, denies fever diarrhea. Main complaint right-sided abdominal pain. Past Medical History: Alcoholism, alcohol liver disease, alcohol liver cirrhosis, alcohol withdrawal, alcohol dependency, coronary artery disease Past Surgical History: No recent surgery Social History: Denies daily drugs, tobacco. Daily alcohol use. No alcohol today. Family History: Noncontributory ROS REVIEW OF SYSTEMS: 10 Systems were reviewed and negative with the exception of the elements mentioned in the history of present illness. Exam Constitutional triage nursing summary reviewed, vital signs reviewed, awake/ alert. Eyes raccoon eyes on exam normal conjunctivae and sclera, EOMI, PERRLA. HENT normal inspection, atraumatic, moist mucus membranes, no epistaxis, neck supple/ no meningismus, no raccoon eyes. Respiratory clear to auscultation bilaterally, normal breath sounds, no respiratory distress, no wheezing. Cardiovascular rate normal, regular rhythm, no murmur, no edema, distal pulses normal. Gastrointestinal mild tender palpation right-sided abdominal, no rebound, no guarding, normal bowel sounds, no distension, no pulsatile mass. Genitourinary no CVA tenderness. Musculoskeletal no midline vertebral tenderness, full range of motion, no calf swelling, no tenderness of extremities, no meningismus, good pulses, neurovascularly intact. Skin pink, warm, & dry, no rash, skin atraumatic. Neurologic awake, alert and oriented x 3, AAOx3, moves all 4 extremities equally, motor intact, sensory intact, CN II-XII intact, normal cerebellar, normal vision, normal speech. Psychiatric normal mood/affect. Heme/Lymph/Immune no lymphadenopathy. Differential Diagnosis: Differential diagnosis includes but is not limited to and in no particular order: Bowel obstruction, appendicitis, gallbladder disease, diverticulitis, colitis, enteritis, perforated viscus, gastritis, GERD , esophagitis, urinary tract infection, pyelonephritis, kidney stones Medical Decision Making: Plan for this patient IV establishment IV fluid bolus IV Dilaudid 0.5 mg for pain control IV Zofran 4 mg for nausea, CT scan abdomen pelvis with IV contrast. Reason for CT scan help delineate right-sided abdominal pain rule out acute appendicitis. Re-evaluation: CT scan abdomen pelvis with IV contrast concerning for acute cholecystitis with distended gallbladder. Called to me by Dr. Jacobs. Recommend ultrasound Ultrasound of the right lower quadrant shows acute cholecystitis. Called to me by Dr. Jacobs [id number]: Plan for this patient admit to Dr. Mendenhall. I have consult Dr. Mendenhall for patient's acute cholecystitis. Patient received 2 L of fluid here. IV Invanz ordered. IV Dilaudid for pain control Admit to Dr. Mendenhall for surgery. Ultrasound CT concerning for acute cholecystitis. Patient updated is fine with this plan. Source: Patient - Medical/Surgical History Hx Asthma: No Hx Chronic Respiratory Disease: No Hx Diabetes: No Hx Cardiac Disease: Yes Hx Renal Disease: No Hx Cirrhosis: No Hx Alcoholism: Yes Hx HIV/AIDS: No Hx Splenectomy or Spleen Trauma: No Other PMH: aortic valve replacement 2014 etoh - Social History Smoking Status: Never smoked Constitutional: Initial Vital Signs Temperature (C) 36.6 C 03/23/18 21:46 Heart Rate 89 03/23/18 21:46 Respiratory Rate 18 03/23/18 21:46 Blood Pressure 151/103 H 03/23/18 21:46 O2 Sat (%) 95 03/23/18 21:46 O2 Delivery Mode Nasal Cannula O2 (L/minute) 2 Allergies/Adverse Reactions: No Known Allergies Allergy (Verified 03/12/18 10:54) Home Medications: Medication Instructions Recorded NK [No Known Home Meds] 03/23/18 Medical Decision Making - Diagnostics Imaging Results: Imaging Impressions Abdomen CT 03/23/18 22:02 Impression: 1. Distended gallbladder with gallbladder wall thickening and pericholecystic fluid. Consider correlation with right upper quadrant ultrasound to evaluate for possible cholecystitis. 2. No CT evidence of appendicitis, abscess or bowel obstruction. Findings discussed with Duke River MD at 23:05 hour, 03/23/2018. Abdomen Ultrasound 03/23/18 23:07 Impression: 1. Gallbladder wall thickening, gallstones, pericholecystic fluid as well as tenderness over the gallbladder compatible with cholecystitis. 2. Mild hepatic steatosis. Findings discussed with Duke River MD at 23:50 hour, 03/23/2018. - Data Points Laboratory Results: Laboratory Results 03/23/18 22:15 03/23/18 22:15 03/23/18 03/23/18 03/23/18 22:15 22:15 22:15 WBC RBC Hgb Hct MCV MCH MCHC RDW Plt Count MPV Neut % (Auto) Lymph % (Auto) [place] % (Auto) Eos % (Auto) Baso % (Auto) Nucleat RBC Rel Count Absolute Neuts (auto) Absolute Lymphs (auto) Absolute Monos (auto) Absolute Eos (auto) Absolute Basos (auto) Absolute Nucleated RBC Immature Gran % Immature Gran # PT 12.9 SEC SEC (12.0-15.0) INR 0.95 (0.83-1.16) APTT 26.8 SEC SEC (23.0-38.0) Sodium 134 mEq/L L mEq/L (135-145) Potassium 3.3 mEq/L L mEq/L (3.5-5.2) Chloride 98 mEq/L mEq/L (97-110) Carbon Dioxide 27 mEq/l mEq/l (22-31) Anion Gap 9 mEq/L mEq/L (6-14) BUN 17 mg/dL mg/dL (7-23) Creatinine 1.0 mg/dL mg/dL (0.7-1.3) Estimated GFR > 60 Glucose 122 mg/dL H mg/dL (70-100) Calcium 9.7 mg/dL mg/dL (8.5-10.4) Total Bilirubin 1.0 mg/dL mg/dL (0.1-1.4) Conjugated Bilirubin 0.4 mg/dL mg/dL (0.0-0.5) Unconjugated Bilirubin 0.6 mg/dL mg/dL (0.0-1.1) AST 24 IU/L IU/L (17-59) ALT 27 IU/L IU/L (21-72) Alkaline Phosphatase 83 IU/L IU/L (38-126) Total Protein 7.1 g/dL g/dL (6.3-8.2) Albumin 4.0 g/dL g/dL (3.5-5.0) Lipase 236 IU/L IU/L (23-300) Urine Color Urine Appearance Urine pH Ur Specific [place] Urine Protein Urine Ketones Urine Blood Urine Nitrate Urine Bilirubin Urine Urobilinogen Ur Leukocyte Esterase Urine Glucose Ethyl Alcohol < 10 mg/dL mg/dL (0-10) 03/23/18 03/23/18 22:15 21:55 WBC 10.10 10^3/uL H 10^3/uL (3.80-9.50) RBC 4.35 10^6/uL L 10^6/uL (4.40-6.38) Hgb 15.4 g/dL g/dL (13.7-17.5) Hct 44.1 % % (40.0-51.0) MCV 101.4 fL H fL (81.5-99.8) MCH 35.4 pg H pg (27.9-34.1) MCHC 34.9 g/dL g/dL (32.4-36.7) RDW 12.7 % % (11.5-15.2) Plt Count 290 10^3/uL 10^3/uL (150-400) MPV 9.6 fL fL (8.7-11.7) Neut % (Auto) 69.9 % % (39.3-74.2) Lymph % (Auto) 16.6 % % (15.0-45.0) [place] % (Auto) 11.5 % % (4.5-13.0) Eos % (Auto) 0.9 % % (0.6-7.6) Baso % (Auto) 0.6 % % (0.3-1.7) Nucleat RBC Rel Count 0.0 % % (0.0-0.2) Absolute Neuts (auto) 7.06 10^3/uL H 10^3/uL (1.70-6.50) Absolute Lymphs (auto) 1.68 10^3/uL 10^3/uL (1.00-3.00) Absolute Monos (auto) 1.16 10^3/uL H 10^3/uL (0.30-0.80) Absolute Eos (auto) 0.09 10^3/uL 10^3/uL (0.03-0.40) Absolute Basos (auto) 0.06 10^3/uL 10^3/uL (0.02-0.10) Absolute Nucleated RBC 0.00 10^3/uL 10^3/uL (0-0.01) Immature Gran % 0.5 % % (0.0-1.1) Immature Gran # 0.05 10^3/uL 10^3/uL (0.00-0.10) PT INR APTT Sodium Potassium Chloride Carbon Dioxide Anion Gap BUN Creatinine Estimated GFR Glucose Calcium Total Bilirubin Conjugated Bilirubin Unconjugated Bilirubin AST ALT Alkaline Phosphatase Total Protein Albumin Lipase Urine Color YELLOW Urine Appearance CLEAR Urine pH 5.0 (5.0-7.5) Ur Specific [place] 1.020 (1.002-1.030) Urine Protein NEGATIVE (NEGATIVE) Urine Ketones NEGATIVE (NEGATIVE) Urine Blood NEGATIVE (NEGATIVE) Urine Nitrate NEGATIVE (NEGATIVE) Urine Bilirubin NEGATIVE (NEGATIVE) Urine Urobilinogen NEGATIVE EU EU (0.2-1.0) Ur Leukocyte Esterase NEGATIVE (NEGATIVE) Urine Glucose NEGATIVE (NEGATIVE) Ethyl Alcohol Medications Given: Discontinued Medications Hydromorphone HCl (Dilaudid) 0.5 mg IVP EDNOW ONE Stop: 03/23/18 22:02 Last Admin: 03/23/18 22:12 Dose: 0.5 mg Sodium Chloride (Ns) 1,000 mls @ 0 mls/hr IV EDNOW ONE; Wide Open PRN Reason: Protocol Stop: 03/23/18 22:02 Last Admin: 03/23/18 22:11 Dose: 1,000 mls Ertapenem 1 gm/ Sodium (Chloride) 100 mls @ 200 mls/hr IV EDNOW ONE PRN Reason: Protocol Stop: 03/23/18 23:56 Last Admin: 03/23/18 23:52 Dose: 100 mls Sodium Chloride (Ns) 1,000 mls @ 0 mls/hr IV ONCE ONE PRN Reason: Wide Open Stop: 03/24/18 00:32 Last Admin: 03/24/18 00:34 Dose: 1,000 mls Ondansetron HCl (Zofran) 4 mg IVP EDNOW ONE Stop: 03/23/18 22:02 Last Admin: 03/23/18 22:11 Dose: 4 mg Departure - Departure Disposition: [facility] Acute Clinical Impression: Acute cholecystitis Abdominal pain Qualifiers: Abdominal location: right upper quadrant Qualified Code(s): R10.11 - Right upper quadrant pain Condition: Fair
[2018-03-23] MEDS ORDERED: HYDROmorphONE/DILAUDID 2 MG/ML INJ IVP ONE (22:01)
[2018-03-23] MEDS ORDERED: NS 1,000 ML IV ONE (22:01)
[2018-03-23] MEDS ORDERED: ONDANSETRON 4 MG/2 ML VIAL IVP ONE (22:01)
[2018-03-23 22:25] LABS: PLATELET COUNT 290 10^3/uL (150-400)
[2018-03-23] MEDS ORDERED: IOPAMIDOL (ISOVUE-300) 100 ML BTL ONE (22:47)
[2018-03-23] MEDS ORDERED: ERTAPENEM 1 GM in NS 100 ML IV ONE (23:27)
[2018-03-24] MEDS ORDERED: NS 1,000 ML IV ONE (00:31)
[2018-03-24 00:51] LABS: INR 0.95 (0.83-1.16); PROTIME(PATIENT) 12.9 SEC (12.0-15.0)
[2018-03-24] MEDS ORDERED: D5W 1/2 NS 1,000 ML IV SCH (06:00)
[2018-03-24] MEDS ORDERED: HYDROmorphONE/DILAUDID 1 MG/ML INJ IVP PRN (06:11)
[2018-03-24] MEDS ORDERED: ERTAPENEM 1 GM in NS 100 ML IV ONE (08:33)
[2018-03-24] MEDS ORDERED: LR 1,000 ML IV ONE ×2 (08:35→09:32)
--- NOTE | 2018-03-24 09:08 | PDGENHP ---
History & Physical Chief Complaint: ABDOMINAL PAIN History of Present Illness: 62-YEAR-OLD MALE PREVIOUS UP COLIC WITH RIGHT UPPER QUADRANT PAIN FOR [address] SCAN ULTRASOUND SHOW ABNORMAL GALLBLADDER WITH STONES AND THICKENING. LFTS ARE NORMAL. HE IS NONICTERIC. NO OTHER SYMPTOMS EXCEPT FOR RIGHT UPPER QUADRANT PAIN. ADMIT FOR LAP CHOLY. RISKS AND OPTIONS FULLY DISCUSSED Pertinent Past, Social, Family History: PAST MEDICAL HISTORY: ALCOHOL ABUSE/ AORTIC VALVE REPLACEMENT. REVIEW OF SYSTEMS NEGATIVE ON A FULL 10 POINT REVIEW EXCEPT RELATED HPI. SOCIAL HISTORY: HIS QUIT SMOKING DRINKING AND DOES NOT SMOKE. MEDICATIONS NONE. ALLERGIES NONE. FAMILY HISTORY NONCONTRIBUTORY Relevant Physical Exam: GENERAL REASONABLY HEALTHY 62-YEAR-OLD MALE IN NO ACUTE DISTRESS, AFEBRILE. HEENT NONICTERIC, PERRLA, NO ADENOPATHY. CHEST CLEAR AND SYMMETRIC. COR REGULAR RHYTHM WITHOUT MURMURS. ABDOMEN SOFT TENDER IN THE RIGHT UPPER QUADRANT WITH FULLNESS AND PALPABLE MASS, POSITIVE BOWEL SOUNDS. GENITALIA NORMAL. EXTREMITIES FULL RANGE OF MOTION FULL PULSES. PSYCH ALERT ORIENTED AND COOPERATIVE. NEURO SYMMETRIC AND PHYSIOLOGIC Cardiorespiratory Assessment: IMPRESSION ACUTE CHOLECYSTITIS. PLAN LAP CHOLY RISKS AND OPTIONS FULLY DISCUSSED AND HE WISHES TO PROCEED
[2018-03-24] MEDS ORDERED: ROCURONIUM 50 MG/5 ML VIAL ONE (09:23)
[2018-03-24] MEDS ORDERED: ONDANSETRON 4 MG/2 ML VIAL ONE (09:23)
[2018-03-24] MEDS ORDERED: LIDOCAINE 2% 5 ML SDV ONE (09:23)
[2018-03-24] MEDS ORDERED: DEXAMETHASONE 4 MG/ML VIAL ONE (09:23)
[2018-03-24] MEDS ORDERED: fentaNYL 250 MCG/5 ML INJ ONE (09:24)
[2018-03-24] MEDS ORDERED: PROPOFOL 200 MG/20 ML VIAL ONE (09:24)
[2018-03-24] MEDS ORDERED: NALOXONE HCL 0.4 MG/ML INJ IVP PRN (09:35)
[2018-03-24] MEDS ORDERED: PHENYLEPHRINE HCL 100 MCG/ML SYR IVP PRN (09:35)
[2018-03-24] MEDS ORDERED: ONDANSETRON 4 MG/2 ML VIAL IVP PRN (09:35)
[2018-03-24] MEDS ORDERED: MEPERIDINE 25 MG/0.5 ML AMP IVP PRN (09:35)
[2018-03-24] MEDS ORDERED: PROMETHAZINE HCL 25 MG/ML INJ IVP PRN (09:35)
[2018-03-24] MEDS ORDERED: fentaNYL 100 MCG/2 ML INJ IVP PRN (09:35)
[2018-03-24] MEDS ORDERED: LR 500 ML IV PRN (09:35)
[2018-03-24] MEDS ORDERED: METOCLOPRAMIDE 10 MG/2 ML VIAL IVP PRN (09:35)
[2018-03-24] MEDS ORDERED: oxyCODONE IR 5 MG TAB PO PRN (09:35)
[2018-03-24] MEDS ORDERED: HYDROmorphONE/DILAUDID 2 MG/ML INJ IVP PRN (09:35)
[2018-03-24] MEDS ORDERED: MIDAZOLAM 2 MG/2 ML VIAL IVP ONE (09:35)
[2018-03-24] MEDS ORDERED: SUGAMMADEX SODIUM 200 MG/2 ML VIAL IVP ONE (09:38)
[2018-03-24] MEDS ORDERED: KETOROLAC 30 MG/1 ML SDV ONE (09:38)
[2018-03-24] MEDS ORDERED: BUPIVACAINE 0.5% 30 ML SDV ONE (09:54)
[2018-03-24] MEDS ORDERED: ceFAZolin 1 GM/5 ML SYR ONE (09:55)
[2018-03-24] MEDS ORDERED: HEPARIN 1000 UNIT/1 ML MDV ONE (09:55)
--- NOTE | 2018-03-24 10:38 | PDANEPAE ---
ANE Past Medical History - Cardiovascular History Hx Hypertension: No Hx Arrhythmias: Yes Hx Coronary Artery / Peripheral Vascular Disease: No Hx CHF / Valvular Disease: Yes Cardiovascular History Comment: HEART MURMUR. DR VICENTE AT [facility] IS THE CHEMICAL HANDLER CODY REFFERED HIM TOO AFTER WRIST SURGERY. Patient reports having aortic valve repaired about 4-5 years ago. No symptoms. mild SOB after climbing multiple flights of stairs. - Pulmonary History Hx COPD: No Hx Asthma/Reactive Airway Disease: No Hx Recent Upper Respiratory Infection: No Hx Oxygen in Use at Home: No Hx Sleep Apnea: No Sleep Apnea Screening Result - Last Documented: Negative - Neurologic History Hx Cerebrovascular Accident: No Hx Seizures: No Hx Dementia: No - Endocrine History Hx Diabetes: No - Renal History Hx Renal Disorders: No - Liver History Hx Hepatic Disorders: No - Neurological & Psychiatric Hx Hx Neurological and Psychiatric Disorders: No - Cancer History Hx Cancer: No - Congenital Disorder History Hx Congenital Disorders: No - GI History Hx Gastrointestinal Disorders: No - Other Health History Other Health History: NONE - Chronic Pain History Chronic Pain: No - Surgical History Prior Surgeries: LEFT WRIST SURGERY 12/2013 ANE Review of Systems Review of Systems: ANE Patient History - Allergies Allergies/Adverse Reactions: No Known Allergies Allergy (Verified 03/12/18 10:54) - Home Medications Home Medications: Acetaminophen [Tylenol 325mg (*)] 325 mg PO DAILY PRN 03/24/18 [Last Taken Unknown] Multivitamins [Multivitamin (*)] 1 each PO DAILY 03/24/18 [Last Taken 03/23/18] - NPO status NPO Since - Liquids (Date): 03/23/18 NPO Since - Liquids (Time): 17:00 NPO Since - Solids (Date): 03/23/18 NPO Since - Solids (Time): 12:00 - Smoking Hx Smoking Status: Never smoked - Family Anes Hx Family Hx Anesthesia Complications: NONE ANE Labs/Vital Signs - Labs Result Diagrams: 03/23/18 22:15 03/23/18 22:15 - Vital Signs Blood Pressure: 146/102 Heart Rate: 73 Respiratory Rate: 18 O2 Sat (%): 94 Height: 170.18 cm Weight: 71.668 kg ANE Physical Exam - Airway Neck exam: FROM Mallampati Score: Class 2 Mouth exam: normal dental/mouth exam - Pulmonary Pulmonary: no respiratory distress, no rales or rhonchi, clear to auscultation - Cardiovascular Cardiovascular: regular rate and rhythym, no murmur, rub, or gallop, diastolic murmur - ASA Status ASA Status: III ANE Anesthesia Plan Anesthesia Plan: general endotracheal anesthesia
[2018-03-24] MEDS ORDERED: EPINEPHrine 1 MG/10 ML SYR IVP ONE (11:13)
[2018-03-24] MEDS ORDERED: PHENYLEPHRINE HCL 100 MCG/ML SYR ONE (11:13)
--- NOTE | 2018-03-24 12:12 | POSTOPPROG ---
Post Op Note Date of Operation: 03/24/18 Surgeon: Jonn Mendenhall Card Hand: Yahaira Knight Anesthesiologist: Harjinder Lucas Anesthesia: GET(General Endotracheal) Pre-op Diagnosis: acute cholecystitis, cholelithiasis Procedure: lap dilshad Findings: very inflamed gallbladder c adhesions Inf/Abcess present in the surg proc area at time of surgery?: Yes Depth: Organ Space EBL: 50-100 Complications: none Specimen(s): for path and culture
--- NOTE | 2018-03-24 15:02 | POSTANESTH ---
Post Anesthetic Evaluation Cardiovascular Status: Normal, Stable Respiratory Status: Normal, Stable Level of Consciousness/Mental Status: Can Participate in Eval Pain Control: Adequate, Prn Tx Ordered Nausea/Vomiting Control: Adequate, Prn Tx Ordered Complications Possibly Related to Anesthesia: None Noted
[2018-03-24] MEDS: OXYCODONE/APAP 5/325 TAB PO PRN ×3 (16:38→21:43)
--- NOTE | 2018-03-24 16:41 | ASMTCMCOM ---
CM Note CM Note Notes: Patient admitted with abdominal pain - lap dilshad on 03/24. Patient does have a hx of alcoholism and on last admission (03/12) CM provided alcohol cessation - patient declined treatment. Anticipate this patient will be independent upon d/c. Usually follows-up at [facility]. CM can help coordinate if necessary. Will follow. Plan: Likely independent Date Signed: 03/24/2018 04:40 PM Electronically Signed By:Allie Abarca RN
[2018-03-24] MEDS ORDERED: ERTAPENEM 1 GM in NS 100 ML IV SCH (21:00)
--- NOTE | 2018-03-25 00:28 | GOP ---
DATE OF OPERATION: 03/24/2018 SURGEON: Jonn Mendenhall MD ASSEMBLY CLEANER: LYNN Jack. ANESTHESIOLOGIST: Dr. Aviles. PREOPERATIVE DIAGNOSIS: Acute cholecystitis. POSTOPERATIVE DIAGNOSIS: Acute cholecystitis. PROCEDURE PERFORMED: Laparoscopic cholecystectomy. FINDINGS: The patient was found to have hydrops of the gallbladder with marked adhesions to the gallbladder. Ducts were small. ESTIMATED BLOOD LOSS: Less than 50 cc. DESCRIPTION OF PROCEDURE: Patient was taken to the operating room where he received satisfactory general endotracheal anesthesia by Dr. Aviles. He was placed in supine position, prepped and draped in the usual sterile fashion. A periumbilical incision was made. A Veress needle inserted. Pneumoperitoneum was established. Trocar was introduced. Laparoscope introduced. Good visualization was obtained. Gallbladder was completely obscured with adhesions and hydrops. These were taken down with electrocautery until the entire gallbladder could be exposed. The cystic triangle was carefully dissected free. The cystic duct and cystic artery were isolated. A good clear view was established. Both structures were multiply hemoclipped and divided with care to avoid injury to the common bile duct. The peritoneum was dissected off the gallbladder and it was then dissected off the hepatic fossa. Hemostasis was assured with electrocautery. The gallbladder was brought out through the upper midline port site after being placed in a specimen bag. The gallbladder was cultured. Hemostasis was assured. The wound was copiously irrigated and appeared to be hemostatic. The wound was suctioned clear. Trocars were removed under direct vision. Trocar sites were closed with 0 Vicryl for the fascia and 4-0 Monocryl subcuticular stitch for the skin. All layers infiltrated with 0.5% Marcaine. COMPLICATIONS: There were no complications /[id number]/MODL MTDD
[2018-03-25] MEDS: ERTAPENEM 1 GM in NS 100 ML IV SCH (09:33)
[2018-03-25] MEDS: OXYCODONE/APAP 5/325 TAB PO PRN ×2 (11:20→18:44)
--- NOTE | 2018-03-25 16:17 | PDMN ---
Medical Necessity Medical necessity: Pt meets IP criteria as of 03/25/2018 per MD and MCG [id number] ( laparoscopic cholecystectomy); los > 2 mn for post operative pain control s/p lap dilshad d/t acute cholecystitis; comorbid aortic valve replacement and ETOH abuse.
--- NOTE | 2018-03-25 17:58 | SOAPPROG ---
SOAP Progress Note Assessment/Plan: Assessment: 62yo male s/p lap dilshad Having difficulty ambulating secondary to pain, tolerating regular diet PE comfortable nonjaundiced abdomen mild distension, very soft to palpation Plan: likely discharge in AM when if pain better controlled, discussed with patient and saw patient in AM and PM 03/25/18 17:56 Objective: Vital Signs Temp Pulse Resp BP Pulse Ox 37.0 C 78 16 133/88 H 92 03/25/18 15:35 03/25/18 15:35 03/25/18 15:35 03/25/18 15:35 03/25/18 15:35 03/24/18 03/25/18 03/26/18 05:59 05:59 05:59 Intake Total 240 Balance 240 PT 12.9 SEC (12.0-15.0) 03/23/18 22:15 INR 0.95 (0.83-1.16) 03/23/18 22:15 ICD10 Worksheet Patient Problems: Problems Problem Status Onset Abdominal pain Acute Acute cholecystitis Acute Alcohol dependence with withdrawal Acute Aortic stenosis Acute Ataxia Acute Hiccups Acute Tachycardia Acute Wernicke encephalopathy Acute
[2018-03-26] MEDS: OXYCODONE/APAP 5/325 TAB PO PRN (07:15)
[2018-03-26] MEDS: ERTAPENEM 1 GM in NS 100 ML IV SCH (08:17)
[2018-03-26 08:27] VITALS: BP 123/89
== END 2018-03-26 10:26 | disposition home or self-care (01) | DRG 263 ==
LOC: F3E 03-24 01:42 → OBSVTOIN 03-25 16:03
PROVIDERS: ADMIT Surgery; ATTEND Surgery
PROC: 0FT44ZZ Resection of Gallbladder, Percutaneous Endoscopic Approach (ICD-10-PCS; principal; 2018-03-24 12:30)
DX: K81.0 Acute cholecystitis (principal); K82.1 Hydrops of gallbladder; Z95.4 Presence of other heart-valve replacement; Z87.891 Personal history of nicotine dependence
CPT/HCPCS: 96365; G0378; G0480; J1100; J1170; J1335; J1885; J2250; J2370; J2405; J2704; J3010; Q9967